=== PATIENT | female | born 1970 | race Caucasian/White ===

== ENCOUNTER 2017-03-30 09:11 | Observation (INO) | payer OTHER ==
[~2017-03-30] VITALS: Ht 162.6 cm; Wt 127.0 kg
[~2017-03-30 09:11] MED LIST: ALBUTEROL SUL0.083 % IN; ALEVE220 M1 PO; FLEXERIL PO; HM ASPIRIN EC325 MG PO; MEDDOSEPAK PO; METFORMIN500 MG PO; MUCINEX600 MG PO; NEBULIZE1; PLAVIX75 MG PO; ULTRAM50 M1 PO; VENTOLIN HF1 IN; ZESTRIL5 M1 PO; ZITHROMAX250 MG PO
--- NOTE | 2017-03-30 09:26 | NUR ---
PT IMMEDIATELY TO ROOM 13, HX AMI, SIMILAR SYMPTOMS.
[2017-03-30] MEDS ORDERED: ATENOLOL25 MG PO (09:30)
--- NOTE | 2017-03-30 09:35 | NUR ---
PATIENT REPORTS PAIN NOW 3/10 AFTER 1 SL NITRO. BP NOW 110/57. MD NOTIFIED OF PT STATUS.
[2017-03-30 09:52] LABS: HEMATOCRIT 45.5 % (37.0-47.0); HEMOGLOBIN 15.6 g/dl (12.0-16.0); IMMATURE GRANULOCYTES 0.7 % (0.0-1.0); MEAN CELL VOLUME 89.7 fL CALC (80.0-100.0); MEAN CORPUSCULAR HGB 30.8 pG CALC (26.0-32.0); MEAN CORPUSCULAR HGB CONC 34.3 g/L CALC (32.0-36.0); NEUT# 6.35 thou/uL (2.00-7.15); RED BLOOD COUNT 5.07 mill/uL (4.20-5.60); RED CELL DISTRI WIDTH 14.2 % (11.5-15.5)
[2017-03-30 10:05] LABS: ALBUMIN 4.6 g/dL (3.2-5.0); ALKALINE PHOSPHATASE 76 u/l (38-126); AMYLASE 34 u/l (30-110); ANION GAP 17 (6-22 (CALC)); BILIRUBIN, TOTAL 0.6 mg/dL (0.0-1.4); BUN 11 mg/dL (7-17); BUN/CREATININE RATIO 21 (12-20 (CALC)); CALCIUM 9.5 mg/dL (8.4-10.2); CARBON DIOXIDE 22 mmol/l (22-30); CHLORIDE 102 mmol/l (95-108); CREATININE 0.6 mg/dL (0.5-1.0); GFR > 60 ML/MIN (>=60 (CALC)); GFR FOR AFR.AMER. > 60 ML/MIN (>=60 (CALC)); GLUCOSE 180 mg/dL (65-105); LIPASE 73 u/l (23-300); POTASSIUM 4.4 mmol/l (3.5-5.1); SGOT/AST 28 u/l (14-36); SGPT/ALT 34 u/l (9-52); SODIUM 136 mmol/l (137-146)
--- NOTE | 2017-03-30 10:12 | NUR ---
PATIENT REPORTS PAIN NOW 2/10, RESTING COMFORTABLY IN STRETCHER IN NAD, FRIEND AT BEDSIDE.
[2017-03-30 10:17] LABS: MYOGLOBIN 23 ng/mL (0 - 62)
--- NOTE | 2017-03-30 10:50 | NUR ---
PT REPORTING PAIN NOW 09/14, AWARE OF PENDING ADMISSION. CALL SCHAFER WITHIN REACH. WILL CONTINUE TO MONITOR.
--- NOTE | 2017-03-30 10:52 | NUR ---
CALL PLACED TO MILTON BUSTILLOS WILL CALL MARK.
--- NOTE | 2017-03-30 11:03 | NUR ---
REPORT GIVEN TO CONCHITA ROSE.
--- NOTE | 2017-03-30 11:09 | NUR ---
Admission Note Report Given to: CONCHITA ROSE Transported by: Wheelchair X Stretcher Transported with: X Nurse Transporter X Patent IV O2 X Stoker Erector And Servicer PATIENT TRANSPORTED TO ROOM 267 IN STABLE CONDITION WITH A PATENT IV.
--- NOTE | 2017-03-30 11:10 | NUR ---
PT ARRIVED TO FLOOR AT THIS TIME VIA ADAN ACCOMPANIED BY CLARENCE RN; PT AMB TO SCALE AND BED WITH STEADY GAIT; NO S/S OF DISTRESS NOTED; PT ORIENTED TO ROOM AND CALL LIGHT SYSTEM; VSS; ASSESSMENT COMPLETED AT THIS TIME; TELE IN PLACE PER ED MONITORING; #20 TO LH FLUSHED W/O RESISTANCE; PT DENIES ANY CP AT THIS TIME; PT INSTRUCTED TO CALL FOR ANY CHANGES IN STATUS; CALL LIGHT WITHIN REACH; WILL CONTINUE TO MONITOR
[2017-03-30 11:29] VITALS: BP 118/60
--- NOTE | 2017-03-30 15:14 | NUR ---
PT RESTING IN BED; NO S/S OF DISTRESS NOTED; PT DENIES ANY CP; TELE IN PLACE; PT ECNOURAGED TO CALL FOR ANY ASSISTANCE NEEDED; CALL LIGHT WITHIN REACH; WILL CONTINUE TO MONITOR
[2017-03-30 15:30] VITALS: BP 110/62
--- NOTE | 2017-03-30 19:29 | NUR ---
pt awake in bed; no distress noted; assessment completed; denies pain at current; reports pain worse with coughing and moving; no n/v noted; resp even and unlabored; strong pulses; tele [id number] intact; abd soft with bs present; admits to voiding without difficulty; no urine to inspect at this time; #20 flushed and patent to ; plan of care/ prn meds/labs explained; pt denies needs at current; call light within reach; will continue to monitor
[2017-03-30 19:35] VITALS: BP 124/70
--- NOTE | 2017-03-30 21:15 | NUR ---
awake; rags laborer at bedside; pt offers no complaints; will continue to monitor
--- NOTE | 2017-03-30 23:51 | NUR ---
asleep; no distress noted; resp even and unlabored; iv intact; call light within reach; will continue to monitor
[2017-03-31 00:10] VITALS: BP 127/60
--- NOTE | 2017-03-31 00:19 | NUR ---
awake; complaints of pain at lac iv site; no redness or edema noted; iv flushed and patent; pt states increasing pain; catheter removed with tip intact; #20 started in rh x2 attempts; ivf resumed; call light within reach; will continue to monitor
[2017-03-31 00:55] LABS: URINE BILIRUBIN - DIPSTICK NEGATIVE (NEGATIVE); URINE BLOOD DIPSTICK NEGATIVE (NEGATIVE); URINE CLARITY CLEAR; URINE COLOR YELLOW; URINE GLUCOSE - DIPSTICK 100 mg/dL (NEGATIVE); URINE KETONE TRACE mg/dL (NEGATIVE); URINE LEUK ESTERASE NEGATIVE (NEGATIVE); URINE NITRITE - DIPSTICK NEGATIVE (Negative); URINE PROTEIN - DIPSTICK NEGATIVE (NEG-TRACE); URINE SPECIFIC GRAVITY 1.025; URINE UROBILINOGEN - DIPSTICK 0.2 E.U./dL (0.2)
--- NOTE | 2017-03-31 03:52 | NUR ---
asleep; no distress noted; resp even and unlabored; iv intact; call light within reach; will continue to monitor
--- NOTE | 2017-03-31 04:32 | NUR ---
awake; denies chest pain during the night; iv flushed and patent; will continue to monitor
[2017-03-31 04:45] VITALS: BP 137/78
--- NOTE | 2017-03-31 05:34 | NUR ---
resting with eyes closed; no distress noted; tele; call light within reach
[2017-03-31 05:42] LABS: CHOLESTEROL HDL RATIO 7.8 (<4.4 (CALC))
[2017-03-31 07:54] VITALS: BP 123/57
[2017-03-31] MEDS ORDERED: LEVOTHYROXIN25 MC1 PO (11:34)
[2017-03-31] MEDS ORDERED: LIPITOR20 MG PO (11:34)
[2017-03-31 12:43] VITALS: BP 127/61
--- NOTE | 2017-03-31 14:56 | NUR ---
Discharge instructions given. Patient verbalizes understanding of same. Discharged in good condition via Wheelchair to Home with *Other. All belongings sent with pt.
== END 2017-03-31 14:46 | disposition home or self-care (01) | DRG 313 ==
LOC: ENPENDDIS → ED 09:11 → ED-I 10:10 → ED 10:41 → MS2 10:42
PROVIDERS: Emergency Medicine; Nurse Practitioner Family; ADMIT Internal Medicine; ATTEND Internal Medicine
DX: R07.2 Precordial pain (principal); I25.2 Old myocardial infarction; E11.69 Type 2 diabetes mellitus with other specified complication; E11.65 Type 2 diabetes mellitus with hyperglycemia; Z68.42 Body mass index [BMI] 45.0-49.9, adult; I10 Essential (primary) hypertension; E78.5 Hyperlipidemia, unspecified; F17.210 Nicotine dependence, cigarettes, uncomplicated; E66.01 Morbid (severe) obesity due to excess calories; E03.9 Hypothyroidism, unspecified; Z91.14 Patient's other noncompliance with medication regimen; Z95.5 Presence of coronary angioplasty implant and graft; Z79.84 Long term (current) use of oral hypoglycemic drugs
CPT/HCPCS: G0378

== ENCOUNTER 2018-09-01 09:34 | Emergency (ER) | payer OTHER ==
[~2018-09-01] VITALS: Ht 162.6 cm; Wt 100.0 kg
[~2018-09-01 09:34] MED LIST changes: +ATENOLOL25 MG PO; +LEVOTHYROXIN25 MC1 PO; +LIPITOR20 MG PO
[2018-09-01 10:02] LABS: URINE BILIRUBIN - DIPSTICK NEGATIVE (NEGATIVE); URINE BLOOD DIPSTICK NEGATIVE (NEGATIVE); URINE COLOR YELLOW; URINE GLUCOSE - DIPSTICK >=1000 mg/dL (NEGATIVE); URINE KETONE TRACE mg/dL (NEGATIVE); URINE LEUK ESTERASE NEGATIVE (NEGATIVE); URINE NITRITE - DIPSTICK NEGATIVE (Negative); URINE PROTEIN - DIPSTICK TRACE mg/dL (NEG-TRACE); URINE SPECIFIC GRAVITY >=1.030; URINE UROBILINOGEN - DIPSTICK 0.2 E.U./dL (0.2)
[2018-09-01 10:09] LABS: HEMATOCRIT 48.1 % (37.0-47.0); HEMOGLOBIN 16.3 g/dl (12.0-16.0); IMMATURE GRANULOCYTES 0.7 % (0.0-5.0); MEAN CELL VOLUME 90.2 fL CALC (80.0-100.0); MEAN CORPUSCULAR HGB 30.6 pG CALC (26.0-32.0); MEAN CORPUSCULAR HGB CONC 33.9 g/L CALC (32.0-36.0); NEUT# 5.42 thou/uL (2.00-7.15); RED BLOOD COUNT 5.33 mill/uL (4.20-5.60); RED CELL DISTRI WIDTH 13.6 % (11.5-15.5)
[2018-09-01 10:09] LABS: URINE SQUAMOUS EPITHELIAL CELL MODERATE EPI/hpf (0-FEW)
[2018-09-01 10:10] LABS: URINE BACTERIA MANY hpf
[2018-09-01 10:32] LABS: ALBUMIN 4.3 g/dL (3.2-5.0); ALKALINE PHOSPHATASE 82 u/l (38-126); ANION GAP 15 (6-22 (CALC)); BILIRUBIN, TOTAL 0.4 mg/dL (0.0-1.4); BUN 13 mg/dL (7-17); BUN/CREATININE RATIO 30 (12-20 (CALC)); CARBON DIOXIDE 23 mmol/l (22-30); CHLORIDE 104 mmol/l (95-108); CREATININE 0.4 mg/dL (0.5-1.0); GFR > 60 ML/MIN (>=60 (CALC)); GFR FOR AFR.AMER. > 60 ML/MIN (>=60 (CALC)); LIPASE 92 u/l (23-300); POTASSIUM 4.4 mmol/l (3.5-5.1); SGOT/AST 14 u/l (14-36); SODIUM 137 mmol/l (137-146); TOTAL PROTEIN 7.6 g/dL (6.3-8.2)
[2018-09-01] MEDS ORDERED: OMNICEF300 M1 PO (10:59)
[2018-09-01 11:06] VITALS: BP 161/77
== END 2018-09-01 11:09 | disposition home or self-care (01) ==
LOC: ED 09:34
PROVIDERS: Family Medicine
DX: N39.0 Urinary tract infection, site not specified (principal); S39.011A Strain of muscle, fascia and tendon of abdomen, initial encounter; R10.9 Unspecified abdominal pain; I10 Essential (primary) hypertension; E11.9 Type 2 diabetes mellitus without complications; E78.5 Hyperlipidemia, unspecified; F17.200 Nicotine dependence, unspecified, uncomplicated; X58.XXXA Exposure to other specified factors, initial encounter; Z95.5 Presence of coronary angioplasty implant and graft; R30.0 Dysuria; R35.0 Frequency of micturition

== ENCOUNTER 2018-10-21 11:15 | Emergency (ER) | payer OTHER ==
[~2018-10-21] VITALS: Ht 162.6 cm; Wt 125.0 kg
[~2018-10-21 11:15] MED LIST changes: +OMNICEF300 M1 PO
[2018-10-21] MEDS ORDERED: ZPAK PO (12:16)
[2018-10-21] MEDS ORDERED: ALBUTEROL SUL0.083 % IN (12:16)
[2018-10-21] MEDS ORDERED: PROAIR HFA108 MCG/AC PO (12:16)
[2018-10-21] MEDS ORDERED: PREDNISONE50 MG PO (12:21)
[2018-10-21 12:22] VITALS: BP 140/80
== END 2018-10-21 12:24 | disposition home or self-care (01) ==
LOC: ED 11:15
DX: J20.9 Acute bronchitis, unspecified (principal); I10 Essential (primary) hypertension; E11.9 Type 2 diabetes mellitus without complications; E78.5 Hyperlipidemia, unspecified; Z95.5 Presence of coronary angioplasty implant and graft; R06.02 Shortness of breath; R05 Cough; R06.2 Wheezing

== ENCOUNTER 2019-06-16 12:57 | Emergency (ER) | payer OTHER ==
[~2019-06-16] VITALS: Ht 162.6 cm; Wt 125.0 kg
[~2019-06-16 12:57] MED LIST changes: +PREDNISONE50 MG PO; +PROAIR HFA108 MCG/AC PO; +ZPAK PO
[2019-06-16] MEDS ORDERED: LEVOTHYROXIN75 MCG PO (13:43)
[2019-06-16] MEDS ORDERED: SERTRALINE25 MG PO (13:44)
[2019-06-16] MEDS ORDERED: ISOSORB MONO30 MG PO (13:44)
[2019-06-16 13:51] LABS: HEMATOCRIT 45.6 % (37.0-47.0); HEMOGLOBIN 15.3 g/dl (12.0-16.0); IMMATURE GRANULOCYTES 0.6 % (0.0-5.0); MEAN CELL VOLUME 89.6 fL CALC (80.0-100.0); MEAN CORPUSCULAR HGB 30.1 pG CALC (26.0-32.0); MEAN CORPUSCULAR HGB CONC 33.6 g/L CALC (32.0-36.0); NEUT# 5.47 thou/uL (2.00-7.15); RED BLOOD COUNT 5.09 mill/uL (4.20-5.60); RED CELL DISTRI WIDTH 13.9 % (11.5-15.5)
[2019-06-16 14:06] LABS: ALBUMIN 4.2 g/dL (3.2-5.0); ALKALINE PHOSPHATASE 91 u/l (38-126); ANION GAP 14 (6-22 (CALC)); BILIRUBIN, TOTAL 0.3 mg/dL (0.0-1.4); BUN 12 mg/dL (7-17); BUN/CREATININE RATIO 25 (12-20 (CALC)); CARBON DIOXIDE 25 mmol/l (22-30); CHLORIDE 101 mmol/l (95-108); CREATININE 0.5 mg/dL (0.5-1.0); GFR > 60 ML/MIN (>=60 (CALC)); GFR FOR AFR.AMER. > 60 ML/MIN (>=60 (CALC)); POTASSIUM 4.6 mmol/l (3.5-5.1); SGOT/AST 19 u/l (14-36); SODIUM 135 mmol/l (137-146); TOTAL PROTEIN 7.3 g/dL (6.3-8.2)
[2019-06-16 14:18] LABS: MYOGLOBIN 25 ng/mL (0 - 62)
[2019-06-16 14:30] LABS: LIPASE 126 u/l (23-300)
[2019-06-16 14:57] VITALS: BP 149/65
== END 2019-06-16 14:58 | disposition left against medical advice (07) ==
LOC: ED 12:57 → ED-I 14:30 → ED 14:58
DX: R07.9 Chest pain, unspecified (principal); J45.901 Unspecified asthma with (acute) exacerbation; I25.10 Atherosclerotic heart disease of native coronary artery without angina pectoris; E11.9 Type 2 diabetes mellitus without complications; I10 Essential (primary) hypertension; I25.2 Old myocardial infarction; F17.200 Nicotine dependence, unspecified, uncomplicated; Z91.19 Patient's noncompliance with other medical treatment and regimen; Z79.4 Long term (current) use of insulin; Z95.5 Presence of coronary angioplasty implant and graft; R11.0 Nausea; R06.02 Shortness of breath

== ENCOUNTER 2019-07-30 17:31 | Observation (INO) | payer OTHER ==
[~2019-07-30] VITALS: Ht 162.6 cm; Wt 118.5 kg
[~2019-07-30 17:31] MED LIST changes: +ISOSORB MONO30 MG PO; +LEVOTHYROXIN75 MCG PO; +SERTRALINE25 MG PO
--- NOTE | 2019-07-30 17:34 | NUR ---
PT AMB TO ROOM FOR TRIAGE;
[2019-07-30 17:58] LABS: HEMATOCRIT 46.2 % (37.0-47.0); HEMOGLOBIN 15.1 g/dl (12.0-16.0); IMMATURE GRANULOCYTES 0.8 % (0.0-5.0); MEAN CORPUSCULAR HGB 29.1 pG CALC (26.0-32.0); MEAN CORPUSCULAR HGB CONC 32.7 g/L CALC (32.0-36.0); NEUT# 3.48 thou/uL (2.00-7.15); RED BLOOD COUNT 5.19 mill/uL (4.20-5.60); RED CELL DISTRI WIDTH 13.6 % (11.5-15.5)
[2019-07-30 18:12] LABS: ANION GAP 15 (6-22 (CALC)); BUN 11 mg/dL (7-17); BUN/CREATININE RATIO 24 (12-20 (CALC)); CARBON DIOXIDE 24 mmol/l (22-30); CHLORIDE 105 mmol/l (95-108); CREATININE 0.5 mg/dL (0.5-1.0); GFR > 60 ML/MIN (>=60 (CALC)); GFR FOR AFR.AMER. > 60 ML/MIN (>=60 (CALC)); POTASSIUM 4.1 mmol/l (3.5-5.1); SODIUM 140 mmol/l (137-146)
--- NOTE | 2019-07-30 18:26 | NUR ---
PT SITTING UP ON STRETCHER; NO S/S OF DISTRESS NOTED; O2 NC IN PLACE; MONITORING DEVICES IN PLACE; VSS; PO FLUIDS GIVEN; PT STATES BREATHING IS A LITTLE BETTER; CALL LIGHT WITHIN REACH; WILL CONTINUE TO MONITOR
--- NOTE | 2019-07-30 18:49 | NUR ---
REPORT GIVEN TO CONCHITA TERAN
--- NOTE | 2019-07-30 18:49 | NUR ---
PT RESTING. VSS. NAD. LUNGS CLEAR/DIM
--- NOTE | 2019-07-30 19:31 | NUR ---
REPORT TO STAR/NURSE.
--- NOTE | 2019-07-30 19:41 | NUR ---
TO FLOOR WITH O2 VIA NC/IV ZITHROMAX INFUSING. UPON ARRIVAL PT AMBULATED TO ROOM, WEIGHED AND SETTLED IN ROOM.
--- NOTE | 2019-07-30 20:31 | NUR ---
RECEIVED REPORT FROM NURSE TERAN, PATIENT TRANSPORTED VIA BED HOOKED TO O2 @ 2LPM VIA NC, NOTED TO HAVE EXERTIONAL DYSPNEA, CALL LIGHT AT REACH.
[2019-07-30 20:42] VITALS: BP 173/82
[2019-07-30 22:59] VITALS: BP 161/80
[2019-07-31] VITALS (7 sets, daily range): BP systolic 127–188; BP diastolic 50–90
--- NOTE | 2019-07-31 | NUR ---
PATIENT REMAINS ON O2@ 2LPM VIA NC, SHALLOW, EVEN RESPIRATION CALL LIGHT AT REACH.
--- NOTE | 2019-07-31 04:37 | NUR ---
PATUIENT RESTING IN BED WITH EYES CLOSED EVEN UNLABORED BREATHING CALL LIGHT AT REACH.
--- NOTE | 2019-07-31 08:00 | NUR ---
PT IS AWAKE, ALERT,ORIENTED X 3. LUNGS WITH SLIGHT WHEEZE HEARD THROUGHOUT, BECOMES SOB WITH EXERTION. ELEVATED BLOOD SUGAR OF 310, TO CHECK WITH PRACTITIONER FOR SLIDING SCALE. NAD.
[2019-07-31 11:49] LABS: HEMATOCRIT 45.2 % (37.0-47.0); HEMOGLOBIN 15.1 g/dl (12.0-16.0); IMMATURE GRANULOCYTES 1.6 % (0.0-5.0); MEAN CELL VOLUME 89.3 fL CALC (80.0-100.0); MEAN CORPUSCULAR HGB 29.8 pG CALC (26.0-32.0); MEAN CORPUSCULAR HGB CONC 33.4 g/L CALC (32.0-36.0); NEUT# 8.67 thou/uL (2.00-7.15); RED BLOOD COUNT 5.06 mill/uL (4.20-5.60); RED CELL DISTRI WIDTH 13.7 % (11.5-15.5)
--- NOTE | 2019-07-31 12:00 | NUR ---
PT IN NO DISTRESS SHE RESTS IN THE BED, VISITING INTERMITTENTLY.
[2019-07-31 12:01] LABS: BUN 15 mg/dL (7-17); BUN/CREATININE RATIO 30 (12-20 (CALC)); CARBON DIOXIDE 25 mmol/l (22-30); CHLORIDE 100 mmol/l (95-108); CREATININE 0.5 mg/dL (0.5-1.0); GFR > 60 ML/MIN (>=60 (CALC)); GFR FOR AFR.AMER. > 60 ML/MIN (>=60 (CALC)); MAGNESIUM 1.8 mg/dL (1.6-2.3); SODIUM 136 mmol/l (137-146)
[2019-07-31 12:02] LABS: ANION GAP 16 (6-22 (CALC)); POTASSIUM 5.1 mmol/l (3.5-5.1)
[2019-07-31 13:32] LABS: CHOLESTEROL HDL RATIO 7.7 (<4.4 (CALC))
--- NOTE | 2019-07-31 18:00 | NUR ---
PT SEEN BY DR BLACKBURN, ORDERS RECEIVED FOR ACCUCHECKS AND RESPIRATORY TREATMENTS. PT REMAINS BEFORE, NO DISTRESS, NO COMPLAINTS OF CHEST PAIN.
--- NOTE | 2019-07-31 19:50 | NUR ---
ASSESSMENT COMPLETED. PT. C/O EPIGASTRIC PAIN AND NOTIFIED EDUARDO HAMILTON, WHO IS ON THE FLOOR AT THIS TIME, NEW ORDERS RECEIVED AND TO BE CARRIED OUT. UPDATED ON POC. O2 INFUSING PER NC PER ORDER. PT. DECLINES SOCKS AND NICOLE HOSE TO BE APPLIED. DENIES FURTHER NEEDS. ENCOURAGED TO CALL FOR ANY NEEDS. CALL LIGHT IS IN REACH.
--- NOTE | 2019-07-31 21:43 | NUR ---
SCHED NOVOLOG GIVEN AND SNACK PROVIDED. DENIES NEEDS. ENCOURAGED TO CALL FOR ANY NEEDS. CALL LIGHT IS IN REACH. WILL CONTINUE TO MONITOR.
[2019-07-31 21:56] LABS: URINE BILIRUBIN - DIPSTICK NEGATIVE (NEGATIVE); URINE BLOOD DIPSTICK NEGATIVE (NEGATIVE); URINE COLOR YELLOW; URINE GLUCOSE - DIPSTICK >=1000 mg/dL (NEGATIVE); URINE KETONE NEGATIVE (NEGATIVE); URINE LEUK ESTERASE NEGATIVE (NEGATIVE); URINE NITRITE - DIPSTICK NEGATIVE (Negative); URINE PROTEIN - DIPSTICK NEGATIVE (NEG-TRACE); URINE SPECIFIC GRAVITY 1.025; URINE UROBILINOGEN - DIPSTICK 0.2 E.U./dL (0.2)
--- NOTE | 2019-07-31 23:48 | NUR ---
VSS. DENIES NEEDS/PAIN. ENCOURAGED TO CALL FOR ANY NEEDS. CALL LIGHT IS IN REACH.
[2019-08-01] VITALS (7 sets, daily range): BP systolic 123–173; BP diastolic 55–88
--- NOTE | 2019-08-01 02:00 | NUR ---
PT. RESTING IN BED ON LEFT SIDE WITH EYES CLOSED; RESP. EVEN AND UNLABORED. CALL LIGHT IS IN REACH.
--- NOTE | 2019-08-01 04:00 | NUR ---
RESTING IN BED WITH NO DISTRESS NOTED; RESP. EVEN AND UNLABORED. CALL LIGHT IS IN REACH.
--- NOTE | 2019-08-01 05:10 | NUR ---
SCHED SYNTHROID GIVEN. DENIES FURTHER NEEDS. FRESH WATER GIVEN. CALL LIGHT IS IN REACH.
[2019-08-01 05:26] LABS: HEMATOCRIT 43.8 % (37.0-47.0); HEMOGLOBIN 14.4 g/dl (12.0-16.0); MEAN CELL VOLUME 89.4 fL CALC (80.0-100.0); MEAN CORPUSCULAR HGB 29.4 pG CALC (26.0-32.0); MEAN CORPUSCULAR HGB CONC 32.9 g/L CALC (32.0-36.0); NEUT# 8.21 thou/uL (2.00-7.15); RED BLOOD COUNT 4.9 mill/uL (4.20-5.60); RED CELL DISTRI WIDTH 13.8 % (11.5-15.5)
[2019-08-01 05:45] LABS: ANION GAP 17 (6-22 (CALC)); BUN 17 mg/dL (7-17); BUN/CREATININE RATIO 43 (12-20 (CALC)); CARBON DIOXIDE 23 mmol/l (22-30); CHLORIDE 100 mmol/l (95-108); CREATININE 0.4 mg/dL (0.5-1.0); GFR > 60 ML/MIN (>=60 (CALC)); GFR FOR AFR.AMER. > 60 ML/MIN (>=60 (CALC)); SODIUM 136 mmol/l (137-146)
--- NOTE | 2019-08-01 08:00 | NUR ---
PT SEEN AWAKE, ALERT, ORIENTED X 3. NO COMPLAINT OF CHEST PAIN OR SHORTNESS OF BREATH. BM TODAY. PT AMBULATORY IN ROOM WITHOUT DIFFICULTY. LUNGS CLEAR BUT DIMINISHED PER PT SIZE.
--- NOTE | 2019-08-01 12:00 | NUR ---
PT SEEN BY DR BLACKBURN THIS MORNING, WHO ORDERED 6 MINUTE WALK TEST TO EVALUATE NEED FOR OXYGEN AT HOME. NO COMPLAINTS, NO DISTRESS. 2 LPM NC.
[2019-08-01] MEDS ORDERED: IPRATROPIU0.5 MG/3 M IN (14:02)
[2019-08-01] MEDS ORDERED: MEDDOSEPAK PO (14:06)
[2019-08-01] MEDS ORDERED: ZITHROMAX500 MG PO (14:06)
[2019-08-01] MEDS ORDERED: SPIRIVA RE1.25 MCG/A IN (14:06)
--- NOTE | 2019-08-01 15:35 | NUR ---
PT TAKEN ON 6 MINUTE WALK, SEEN TO HAVE LOW ENOUGH SATS TO REQUIRE HOME OXYGEN. PT'S INSURANCE DOES NOT PROVIDE TIMELY ENOUGH APPROVAL TO DISCHARGE HER HOME TODAY. PT AWARE OF NEED TO STAY, AGREEABLE. NO ACUTE DISTRESS NOTED, MCGREGOR.
--- NOTE | 2019-08-01 19:30 | NUR ---
ASSESSMENT COMPLETED. NO DISTRESS NOTED. PT. SITTING UP ON RA AT THIS TIME. SCHED ABT HUNG AND IV SITE PATENT. FRESH WATER PROVIDED. PT. REPORTS BM EARLIER IN THE DAY. ENCOURAGED TO CALL FOR ANY NEEDS. CALL LIGHT IS IN REACH.
--- NOTE | 2019-08-01 20:50 | NUR ---
NOTIFIED DR. BLACKBURN OF ELEVATED B/P 170/88 WITH HR 68, ALSO NOTIFIED HIM OF B/P MED GIVEN IN AM. NEW ORDERS RECEIVED AND TO BE CARRIED OUT. UPDATED PT. WITH POC.
--- NOTE | 2019-08-02 | NUR ---
RESTING IN BED WITH EYES CLOSED;NO DISTRESS NOTED; RESP. EVEN AND UNLABORED.
--- NOTE | 2019-08-02 03:10 | NUR ---
RESTING IN BED WITH EYES CLOSED; RESP. EVEN AND UNLABORED. CALL LIGHT IS IN REACH.
[2019-08-02 04:17] VITALS: BP 159/84
--- NOTE | 2019-08-02 05:10 | NUR ---
SCHEDULED SYNTHROID GIVEN AT THIS TIME. DENIES NEEDS/PAIN. FRESH WATER GIVEN. CALL LIGHT IS IN REACH.
--- NOTE | 2019-08-02 07:10 | NUR ---
PT RESTING IN BED, NO SIGNS OF DISTRESS NOTED, RESP EVEN AND UNLABORED. PT ALERT AND ORIENTED X3, PT ON RA 94% AT THIS TIME, PT DENIES SOB. DISCUSSED POC. ASSESSMENT COMPLETED, CALL LIGHT IN REACH,CONTINUE TO MONITOR.
[2019-08-02 07:17] VITALS: BP 130/71
[2019-08-02 12:00] VITALS: BP 165/82
--- NOTE | 2019-08-02 12:00 | NUR ---
PT RESTING IN BED, NO SIGNS OF DISTRESS NOTED, RESP EVEN AND UNLABORED. CALL LIGHT IN REACH,CONTINUE TO MONITOR.
[2019-08-02 14:45] VITALS: BP 163/82
--- NOTE | 2019-08-02 14:45 | NUR ---
PT RECHECKED STILL ELEVATED, VISITOR AT BEDSIDE CAUSING SOME FRUSTRATION INFORMED VISITOR THAT PT SAFETY OUR MAIN CONCERN AND IF VISITOR IS CAUSING PT BP TO BE ELEVATED HE MAY NEED TO LEAVE, PT STATES SHE IS OK AT THIS TIME. CALL LIGHT IN REACH, DOOR LEFT OPEN FOR SAFETY. CALL LIGHT IN REACH,CONTINUE TO MONITOR.
--- NOTE | 2019-08-02 14:54 | NUR ---
VISITOR LEFT AT THIS TIME.
[2019-08-02 16:00] VITALS: BP 176/83
--- NOTE | 2019-08-02 16:00 | NUR ---
PT RESTING IN BED WATCHING TV, NO SIGNS OF DISTRESS NOTED, RESP EVEN AND UNLABORED. CALL LIGHT IN REACH,CONTINUE TO MONITOR.
--- NOTE | 2019-08-02 17:40 | NUR ---
NOTIFIED SILVER SERVICE WAITER OF BP, ORDERS PLACED FOR IV APRESOLINE
[2019-08-02 18:58] VITALS: BP 158/80
--- NOTE | 2019-08-02 19:00 | NUR ---
RECEIVED REPORT FROM AM NURSE, PATIENT CURRENTLY EATING DINNER DENIES PAIN OR DISCOMFORTS WITH EVEN UNLABORED BREATHING.
--- NOTE | 2019-08-03 | NUR ---
PATIENT AWAKE AT THIS TIME, WITH SALINE LOCK ON RFA G22, PATENT FLUSHES WELL, EVEN UNLABORED BREATHING AT THIS TIME,LBM 08/01, WILL CONTINUE TO MONITOR
[2019-08-03 00:30] VITALS: BP 160/83
--- NOTE | 2019-08-03 04:00 | NUR ---
PATIENT APPERAS TO BE SLEEPING WITH EYES CLOSED, NO DISCOMFORTS NOTED CALL LIGHTA T REACH.
[2019-08-03 05:07] VITALS: BP 145/78
[2019-08-03 08:45] VITALS: BP 173/77
--- NOTE | 2019-08-03 08:45 | NUR ---
ASSESSMENT IS COMPLETED: IV SITE IS FREE FROM REDNESS OR EDEMA. HR IS REG,PULSES ARE STRONG X4, ABD IS SOFT WITH ACTIVE BS. BREATH SOUNDS ARE DIMINISHED BILATERALLY, CONTINUE TO OBSERVE AND MONITOR. TELE MONITOR IN PLACE
[2019-08-03 11:07] VITALS: BP 178/67
--- NOTE | 2019-08-03 12:31 | NUR ---
PT IS SITTING IN BED WAITING FOR THE DR. OXYGEN HAS BEEN DELIVERED,
[2019-08-03 12:43] VITALS: BP 157/73
--- NOTE | 2019-08-03 15:08 | NUR ---
DR BRUMFIELD IN TO VISIT WITH PT.,
--- NOTE | 2019-08-03 16:15 | NUR ---
IV SITE DISCONTINEUD CATHETER INTACT. NO REDNESS OR EDEMA.
--- NOTE | 2019-08-03 17:00 | NUR ---
DISCHARGE INSTRUCTIONS GIVEN AND VERBALIZED UNDERSTANDING OXYGEN TANK SENT WITH PT. Discharge instructions given. Patient verbalizes understanding of same. Discharged in stable condition via Wheelchair to Home with family. All belongings sent with pt.
== END 2019-08-03 17:00 | disposition home or self-care (01) ==
LOC: ED 17:31 → ED-I 18:35 → ED 18:48 → MS2 18:49
PROVIDERS: Family Medicine; Nurse Practitioner Family; ADMIT Internal Medicine; ATTEND Internal Medicine
DX: J44.1 Chronic obstructive pulmonary disease with (acute) exacerbation (principal); R09.02 Hypoxemia; R07.9 Chest pain, unspecified; I16.0 Hypertensive urgency; I10 Essential (primary) hypertension; E11.65 Type 2 diabetes mellitus with hyperglycemia; E11.69 Type 2 diabetes mellitus with other specified complication; E78.5 Hyperlipidemia, unspecified; E03.9 Hypothyroidism, unspecified; E66.01 Morbid (severe) obesity due to excess calories; I25.10 Atherosclerotic heart disease of native coronary artery without angina pectoris; K21.9 Gastro-esophageal reflux disease without esophagitis; F17.210 Nicotine dependence, cigarettes, uncomplicated; I25.2 Old myocardial infarction; Z68.41 Body mass index [BMI] 40.0-44.9, adult; Z79.84 Long term (current) use of oral hypoglycemic drugs; Z79.82 Long term (current) use of aspirin; Z79.02 Long term (current) use of antithrombotics/antiplatelets; Z95.5 Presence of coronary angioplasty implant and graft; Z88.0 Allergy status to penicillin
CPT/HCPCS: G0378

== ENCOUNTER 2019-08-21 11:24 | Observation (INO) | payer OTHER ==
[~2019-08-21] VITALS: Ht 162.6 cm; Wt 121.0 kg
[~2019-08-21 11:24] MED LIST changes: +IPRATROPIU0.5 MG/3 M IN; +SPIRIVA RE1.25 MCG/A IN; +ZITHROMAX500 MG PO
--- NOTE | 2019-08-21 11:25 | NUR ---
PT TO ROOM 9 VIA WC. ABLE TO SPEAK COMPLETE SENTENCES WITHOUT DIFFICULTY
--- NOTE | 2019-08-21 11:57 | NUR ---
PT ALERT/ORIENTED X3, PT STATES SHE HAS OXYEGEN AT HOME PRN.
--- NOTE | 2019-08-21 12:13 | NUR ---
PT SITTING UP IN BED, WATCHING TV, NO DISTRESS NOTED AT THIS TIME
--- NOTE | 2019-08-21 12:16 | NUR ---
PT DELMIS, NOTIFIED.
[2019-08-21 12:40] LABS: ANION GAP 18 (6-22 (CALC)); BUN 9 mg/dL (7-17); BUN/CREATININE RATIO 23 (12-20 (CALC)); CARBON DIOXIDE 20 mmol/l (22-30); CHLORIDE 95 mmol/l (95-108); CREATININE 0.4 mg/dL (0.5-1.0); GFR > 60 ML/MIN (>=60 (CALC)); GFR FOR AFR.AMER. > 60 ML/MIN (>=60 (CALC)); POTASSIUM 4.3 mmol/l (3.5-5.1); SODIUM 129 mmol/l (137-146)
[2019-08-21 12:46] LABS: HEMATOCRIT 41.1 % (37.0-47.0); HEMOGLOBIN 13.8 g/dl (12.0-16.0); IMMATURE GRANULOCYTES 0.5 % (0.0-5.0); MEAN CELL VOLUME 88.4 fL CALC (80.0-100.0); MEAN CORPUSCULAR HGB 29.7 pG CALC (26.0-32.0); MEAN CORPUSCULAR HGB CONC 33.6 g/L CALC (32.0-36.0); NEUT# 12.6 thou/uL (2.00-7.15); RED BLOOD COUNT 4.65 mill/uL (4.20-5.60); RED CELL DISTRI WIDTH 14.6 % (11.5-15.5)
[2019-08-21 13:38] LABS: ALBUMIN 3.4 g/dL (3.2-5.0); TOTAL PROTEIN 6.3 g/dL (6.3-8.2)
[2019-08-21 13:39] LABS: BILIRUBIN, TOTAL 0.9 mg/dL (0.0-1.4)
[2019-08-21 14:04] LABS: URINE BLOOD DIPSTICK NEGATIVE (NEGATIVE); URINE GLUCOSE - DIPSTICK >=1000 mg/dL (NEGATIVE); URINE KETONE 15 mg/dL (NEGATIVE); URINE LEUK ESTERASE NEGATIVE (NEGATIVE); URINE NITRITE - DIPSTICK NEGATIVE (Negative); URINE PH 5.5 (4.5-8.0); URINE PROTEIN - DIPSTICK 30 mg/dL (NEG-TRACE); URINE SPECIFIC GRAVITY 1.015
[2019-08-21 14:08] LABS: URINE BILIRUBIN - DIPSTICK SMALL (NEGATIVE)
[2019-08-21 14:09] LABS: URINE COLOR DK. YELLOW; URINE EPITHELIAL CELLS FEW EPI/hpf (0-FEW); URINE MUCUS MODERATE hpf (NONE-FEW)
--- NOTE | 2019-08-21 14:12 | NUR ---
SBAR PRINTED TO FLOOR
--- NOTE | 2019-08-21 14:26 | NUR ---
PT UP IN W/C TO BATHROOM, VERY STRONG ODOR SMELL. PT DENIES ANY CHEST PAIN AT THIS TIME, NO TEMP AT THIS TIME 98.6
--- NOTE | 2019-08-21 14:48 | NUR ---
PT UNABLE TO TAKE REPORT ON PT AT THIS TIME
--- NOTE | 2019-08-21 15:25 | NUR ---
PT TO MEDSUR VIA STRETCHER ACCOMPANIED BY STAFF
[2019-08-21 15:38] VITALS: BP 137/85
--- NOTE | 2019-08-21 16:00 | NUR ---
ASSESSMENT DONE. PT IS A&O X3. PT STATED PAIN IN HEAD 10/. TELE IN PLACE. PT STATED SHE HAS A DRY COUGH. PT STATED SHE HAS A BOIL IN AILYN AREA BUT IT IS INTACT. LUNGS SOUND DIMINISHED. SAFETY PRECAUTIONS REINFORCED AND CALL LIGHT IN REACH. NOTIFIED EDUARDO HERNANDEZ RE: PT ACCU, TEMP 100.0 AND PT HAS A BOIL AILYN AREA.
[2019-08-21 18:38] VITALS: BP 132/61
--- NOTE | 2019-08-21 19:18 | NUR ---
REPORT FROM ADENIKE ARANGO. PT ALERT AND ORIENTED. NO APPARENT DISTRESS NOTED. DENIES ANY PAIN OR NAUSEA. PT APPEARS SWEATY. ACCUCHECK OBTAIN 374. AFEBRILE AT THIS TIME. SHOWERED OFFERED AT THIS TIME, PT REFUSED. IV SITE APPEARS HEALTHY. DESKTOP TECHNICIAN IN PLACE. O2 AT BEDSIDE PRN. DISCUSSED POC. PT VERBALIZED UNDERSTANDING. CALL LIGHT WITHIN REACH. WILL CONTINUE TO MONITOR.
--- NOTE | 2019-08-21 22:44 | NUR ---
PT CONTINUES TO SWEAT. ALERT AND ORIENTED. MEDICATED FOR NAUSEA. AFEBRILE. PT AGREES TO SHOWER AT THIS TIME. WILL CONTINUE TO MONITOR.
[2019-08-21 23:56] VITALS: BP 135/80
--- NOTE | 2019-08-22 00:17 | NUR ---
PT MEDICATED FOR HEADACHE WITH PO TYLENOL. NO APPARENT DISTRESS NOTED. PT DENIES ANY OTHER WANTS OR NEEDS. CALL LIGHT WITHIN REACH. WILL CONTINUE TO MONITOR.
[2019-08-22 03:52] VITALS: BP 144/84
--- NOTE | 2019-08-22 04:20 | NUR ---
PT AMBULATED TO BATHROOM WITH STEADY GAIT. COMPLETE LINEN CHANGE DUE TO SWEATING. PT REMAINS AFEBRILE. DENIES ANY OTHER SYMPTOMS. CALL LIGHT WITHIN REACH. WILL CONTINUE TO MONITOR.
[2019-08-22 07:14] VITALS: BP 132/61
--- NOTE | 2019-08-22 08:00 | NUR ---
ASSESSMENT DONE. PT IS A&O X3. PT DENIES PAIN AT THIS TIME. PT STATED READY FOR FOOD. PT STATED SHE HAD A BM. TELE IN PLACE. IVF INFUSING WELL. PT DENIES ANY OTHER NEEDS AT THIS TIME. CALL LIGHT IN REACH.
[2019-08-22 09:49] LABS: HEMOGLOBIN 13.4 g/dl (12.0-16.0); IMMATURE GRANULOCYTES 0.7 % (0.0-5.0); MEAN CELL VOLUME 88.3 fL CALC (80.0-100.0); MEAN CORPUSCULAR HGB 29.6 pG CALC (26.0-32.0); MEAN CORPUSCULAR HGB CONC 33.5 g/L CALC (32.0-36.0); NEUT# 12.62 thou/uL (2.00-7.15); RED BLOOD COUNT 4.53 mill/uL (4.20-5.60); RED CELL DISTRI WIDTH 14.2 % (11.5-15.5)
[2019-08-22 10:11] LABS: ANION GAP 18 (6-22 (CALC)); BUN 16 mg/dL (7-17); BUN/CREATININE RATIO 44 (12-20 (CALC)); CARBON DIOXIDE 19 mmol/l (22-30); CHLORIDE 101 mmol/l (95-108); CREATININE 0.4 mg/dL (0.5-1.0); GFR > 60 ML/MIN (>=60 (CALC)); GFR FOR AFR.AMER. > 60 ML/MIN (>=60 (CALC)); POTASSIUM 4.5 mmol/l (3.5-5.1); SODIUM 133 mmol/l (137-146)
[2019-08-22 11:23] VITALS: BP 129/67
--- NOTE | 2019-08-22 12:01 | NUR ---
PT IS EATING HER LUNCH WITH NO S/S OF DISTRESS NOTED. PT DENIES ANY NEEDS AT THIS TIME. CALL LIGHT IN REACH.
[2019-08-22] MEDS ORDERED: Levaquin PO (12:49)
--- NOTE | 2019-08-22 15:07 | NUR ---
Discharge instructions given. Patient verbalizes understanding of same. Discharged in stable condition via Wheelchair to Home with family. All belongings sent with pt.
--- NOTE | 2019-08-23 10:22 | NUR ---
Notified Kaleigh Freitas APRN, of preliminary blood culture results growing gram positive cocci in 1/2 sets. Will follow-up with final results.
== END 2019-08-22 15:08 | disposition home or self-care (01) ==
LOC: ED 11:24 → ED-I 13:50 → ED 14:02 → MS2 14:03
PROVIDERS: Family Medicine; Nurse Practitioner Family; ADMIT Internal Medicine; ATTEND Internal Medicine
DX: K52.9 Noninfective gastroenteritis and colitis, unspecified (principal); J44.9 Chronic obstructive pulmonary disease, unspecified; E87.1 Hypo-osmolality and hyponatremia; I10 Essential (primary) hypertension; E11.69 Type 2 diabetes mellitus with other specified complication; E78.5 Hyperlipidemia, unspecified; E66.01 Morbid (severe) obesity due to excess calories; E03.9 Hypothyroidism, unspecified; I25.10 Atherosclerotic heart disease of native coronary artery without angina pectoris; K76.0 Fatty (change of) liver, not elsewhere classified; I25.2 Old myocardial infarction; Z95.5 Presence of coronary angioplasty implant and graft; Z79.84 Long term (current) use of oral hypoglycemic drugs; Z87.891 Personal history of nicotine dependence; Z99.81 Dependence on supplemental oxygen; Z91.19 Patient's noncompliance with other medical treatment and regimen; Z68.42 Body mass index [BMI] 45.0-49.9, adult
CPT/HCPCS: G0378; J1650; Q9967

== ENCOUNTER 2019-08-24 | Inpatient (IN) | payer OTHER ==
--- NOTE | 2019-08-23 15:05 | NUR ---
PT TO ROOM WITH A STEADY GAIT.
--- NOTE | 2019-08-23 15:36 | NUR ---
MD AT BEDSIDE AND EXAMINED PT FOR C/O ABSCESS. NURSE AT BEDSIDE.
[2019-08-23 15:48] LABS: HEMATOCRIT 40.4 % (37.0-47.0); HEMOGLOBIN 13.4 g/dl (12.0-16.0); IMMATURE GRANULOCYTES 0.8 % (0.0-5.0); MEAN CELL VOLUME 89.6 fL CALC (80.0-100.0); MEAN CORPUSCULAR HGB 29.7 pG CALC (26.0-32.0); MEAN CORPUSCULAR HGB CONC 33.2 g/L CALC (32.0-36.0); NEUT# 11.38 thou/uL (2.00-7.15); RED BLOOD COUNT 4.51 mill/uL (4.20-5.60); RED CELL DISTRI WIDTH 14.7 % (11.5-15.5)
[2019-08-23 15:57] LABS: ALBUMIN 3.9 g/dL (3.2-5.0); ALKALINE PHOSPHATASE 84 u/l (38-126); ANION GAP 18 (6-22 (CALC)); BILIRUBIN, TOTAL 0.6 mg/dL (0.0-1.4); BUN 19 mg/dL (7-17); BUN/CREATININE RATIO 50 (12-20 (CALC)); CARBON DIOXIDE 20 mmol/l (22-30); CHLORIDE 101 mmol/l (95-108); CREATININE 0.4 mg/dL (0.5-1.0); GFR > 60 ML/MIN (>=60 (CALC)); GFR FOR AFR.AMER. > 60 ML/MIN (>=60 (CALC)); LIPASE 35 u/l (23-300); POTASSIUM 4.6 mmol/l (3.5-5.1); SGOT/AST 17 u/l (14-36); SODIUM 135 mmol/l (137-146)
[2019-08-23 15:58] LABS: TOTAL PROTEIN 7.7 g/dL (6.3-8.2)
--- NOTE | 2019-08-23 16:15 | NUR ---
PT RETURNED FROM CT ADVISED OF WAIT TIME. NO APPARENT DISTRESS.
[2019-08-23 17:53] LABS: URINE BLOOD DIPSTICK TRACE-INTACT (NEGATIVE); URINE COLOR YELLOW; URINE GLUCOSE - DIPSTICK >=1000 mg/dL (NEGATIVE); URINE KETONE 40 mg/dL (NEGATIVE); URINE LEUK ESTERASE NEGATIVE (NEGATIVE); URINE NITRITE - DIPSTICK NEGATIVE (Negative); URINE PH 5.5 (4.5-8.0); URINE PROTEIN - DIPSTICK NEGATIVE (NEG-TRACE); URINE SPECIFIC GRAVITY 1.015; URINE UROBILINOGEN - DIPSTICK 0.2 E.U./dL (0.2)
--- NOTE | 2019-08-23 18:02 | NUR ---
REPORT CALLED TO ALFRED SANCHEZ, ON [employer].
--- NOTE | 2019-08-23 18:05 | NUR ---
TELEMETRY PLACED ON PT.
[2019-08-23 18:08] LABS: URINE BILIRUBIN - DIPSTICK NEGATIVE (NEGATIVE)
--- NOTE | 2019-08-23 18:10 | NUR ---
PT TO MEDSUR VIA STRETCHER IV SITES HEALTHY. IV FLUIDS INFUSING. PT ABLE TO STAND AND TRANSFER STRETCHER TO STRETCHER WITHOUT ASSIST.
--- NOTE | 2019-08-23 18:15 | NUR ---
PT ARRIVED FROM ER VIA STRETCHER ACCOMPANIED BY STAFF. IV SITES ARE CDI. SOME DRAINAGE NOTED ON PAD FROM PUBIS AREA. AMBULATED TO THE BATHROOM.
--- NOTE | 2019-08-23 18:30 | NUR ---
PT ASSESSMENT IS COMPLETED: IV SITES ARE FREE FROM REDNESS OR EDEMA. ABD IS SOFT WITH ACTIVE BS. BREATH SOUNDS ARE CLEAR,BILATERALLY, HR IS REG,PULSES ARE STRONG X4. TELE MONITOR IN PLACE.
[2019-08-23 18:45] VITALS: BP 119/51
--- NOTE | 2019-08-23 19:51 | NUR ---
PT RESTING IN BED. A&O X3. NO DISTRESS NOTED AT THIS TIME. PT C/O THROBBING PAIN IN PERINEAL AREA, NO PAIN REPORTED WITH URINATION. PERINEAL AREA REDDENED AND SWOLLEN WITH 2 AREAS DRAINING. SEE CHART FOR PHOTOS. PT REPORTS PAIN IS PRESENT WHEN SHE TRIES NO MOVE OTHERWISE IT IS TOLERABLE. PT ALSO REPORTS NAUSEA, EXPLAINED TO THE PT THAT WE ARE AWAITING BUFFER COPPER ORDERS. NO OTHER NEEDS AT THIS TIME. DISCUSSED POC. ASSESSMENT COMPLETED AT THIS TIME. CALL LIGHT IN REACH CONTINUE TO MONITOR.
--- NOTE | 2019-08-23 23:45 | NUR ---
PT SLEEPING IN BED. NO DISTRESS NOTED. PT STATES HER NAUSEA HAS SUBSIDED. CALL LIGHT IN REACH, CONTINUE TO MONITOR.
[2019-08-23 23:52] VITALS: BP 147/62
[2019-08-24] VITALS (9 sets, daily range): BP systolic 92–144; BP diastolic 42–71
[~2019-08-24] MED LIST changes: +Levaquin PO
--- NOTE | 2019-08-24 02:02 | NUR ---
PT SLEEPING IN BED. NO DISTRESS NOTED. CONTINUE TO MONITOR.
--- NOTE | 2019-08-24 04:00 | NUR ---
FEVER OF 101.5 , TYLENOL GIVEN. PT DENIES ANY CHILLS OR COLD SWEATS. WILL REASSESS TEMP.
[2019-08-24 05:24] LABS: HEMATOCRIT 35.7 % (37.0-47.0); HEMOGLOBIN 11.8 g/dl (12.0-16.0); IMMATURE GRANULOCYTES 0.9 % (0.0-5.0); MEAN CELL VOLUME 89.9 fL CALC (80.0-100.0); MEAN CORPUSCULAR HGB 29.7 pG CALC (26.0-32.0); MEAN CORPUSCULAR HGB CONC 33.1 g/L CALC (32.0-36.0); NEUT# 10.59 thou/uL (2.00-7.15); RED BLOOD COUNT 3.97 mill/uL (4.20-5.60); RED CELL DISTRI WIDTH 14.9 % (11.5-15.5)
--- NOTE | 2019-08-24 05:24 | NUR ---
PT RESTING IN BED. NO DISTRESS. CEFEPIME INITIATED. CONTINUE TO MONITOR.
[2019-08-24 05:45] LABS: BUN 13 mg/dL (7-17); BUN/CREATININE RATIO 36 (12-20 (CALC)); CHLORIDE 100 mmol/l (95-108); CREATININE 0.4 mg/dL (0.5-1.0); GFR > 60 ML/MIN (>=60 (CALC)); GFR FOR AFR.AMER. > 60 ML/MIN (>=60 (CALC)); POTASSIUM 4.4 mmol/l (3.5-5.1); SODIUM 133 mmol/l (137-146)
[2019-08-24 05:46] LABS: ANION GAP 12 (6-22 (CALC)); CARBON DIOXIDE 25 mmol/l (22-30)
--- NOTE | 2019-08-24 07:55 | NUR ---
Vancomycin consult Age: 48 yo Serum creatinine: 1 mg/dL Height: 64.0 Inches Weight (kg): 120.65 IBW (kg): 54.70 Dosing wt(kg): 120.65 Estimated Creatinine clearance (ml/min): 58.8 Vd (liters): 84.5 (factor used: 0.7 L/kg) Musa (hr-1): 0.053 Half life (hrs): 13.08 Vancomycin 1250 mg q 12 hrs starting today at 1800 with an expected Cpeak of 30 mcg/ml and an expected Ctrough of 17 mcg/ml. next trough on 08/26/19 at 0530.
--- NOTE | 2019-08-24 08:00 | NUR ---
ASSESSMENT IS COMPLETED: IV SITE ISF REE FROM REDNESS OR EDEMA. HR IS REG,PULSES ARE STRONG X4, ABD IS SOFT WITH ACTIVE BS. BREATH SOUNDS ARE CLEAR,BILATERALLY. PUBIC AREA REMAINS DRAINING AND RED
--- NOTE | 2019-08-24 12:00 | NUR ---
PT IS RELAXING IN BED WITH NO DISTRESS NOTED. IV SITE IS FREE FROM REDNESS OR EDEMA.
--- NOTE | 2019-08-24 12:33 | NUR ---
PT SIGNED CONSENT FOR SURGERY, HAS BEEN NPO SINCE 8AM.
--- NOTE | 2019-08-24 14:21 | NUR ---
PT BEING TRANSPORTED TO OR VIA STRETCHER ACCOMPANIED BY STAFF
--- NOTE | 2019-08-24 16:27 | NUR ---
PT RETURNED FROM OR VIA STRETCHER ACCOMPANIED BY STAFF. IV SITE IS FREE FROM REDNESS OR EDEMA. DRESSING INTACT AND DRAINING BLOODY DRAINAGE. SCD'S IN PLACE. O2 @ 2 LITERS WITH NC, CONTINUE TO OBSERVE AND MONITOR. PT ABLE TO AMBULATE TO THE BED FROM THE STRETCHER.,
--- NOTE | 2019-08-24 16:30 | NUR ---
PT IN BED RESTING AFTER RETURNING FROM OR.
--- NOTE | 2019-08-24 23:00 | NUR ---
PT MEDICATED ORDERS PROVIDE AND ASSISTED PT TO BSC. MODERATE AMOUNT OF BLOODY SEROSANGUINEOUS DRAINAGE TO BEDDING PAD OBSERVED AT THIS TIME. PT ASSISTED BACK TO BED W/CLEAN PADS AND DRESSING TO WOUND IN AILYN-AREA REINFORCED AT THIS TIME. PT TOLERATED WELL, BUT C/O HEADACHE AND ASKING FOR PAIN MEDICATION FOR HEADACHE 7/10 ON PAIN SCALE. PT LOCX4. NO OTHER S/O DISTRESS NOTED.
[2019-08-25] VITALS (11 sets, daily range): BP systolic 111–143; BP diastolic 50–74
--- NOTE | 2019-08-25 00:09 | NUR ---
APPEARS TO BE SLEEPING. NO S/O DISTRESS NOTED. CALL LIGHT W/IN REACH
--- NOTE | 2019-08-25 05:38 | NUR ---
PT MEDICATED ORDERS PROVIDE. IV ANTIBOITIC THERAPY RUNNING AT THIS TIME. PT DENIES ANY OTHER NEEDS. RETURNING TO SLEEP. CALL LIGHT AT SIDE.
[2019-08-25 05:52] LABS: HEMOGLOBIN 11.3 g/dl (12.0-16.0); IMMATURE GRANULOCYTES 5.8 % (0.0-5.0); MEAN CELL VOLUME 90.4 fL CALC (80.0-100.0); MEAN CORPUSCULAR HGB 29.2 pG CALC (26.0-32.0); MEAN CORPUSCULAR HGB CONC 32.3 g/L CALC (32.0-36.0); NEUT# 7.32 thou/uL (2.00-7.15); RED BLOOD COUNT 3.87 mill/uL (4.20-5.60); RED CELL DISTRI WIDTH 15.2 % (11.5-15.5)
[2019-08-25 06:17] LABS: ANION GAP 12 (6-22 (CALC)); BUN 12 mg/dL (7-17); BUN/CREATININE RATIO 39 (12-20 (CALC)); CARBON DIOXIDE 24 mmol/l (22-30); CHLORIDE 103 mmol/l (95-108); CREATININE 0.3 mg/dL (0.5-1.0); GFR > 60 ML/MIN (>=60 (CALC)); GFR FOR AFR.AMER. > 60 ML/MIN (>=60 (CALC)); POTASSIUM 3.9 mmol/l (3.5-5.1); SODIUM 135 mmol/l (137-146)
--- NOTE | 2019-08-25 07:50 | NUR ---
ASSESSMENT DONE. PT IS A&O X3. PT STATED PAIN IN AILYN AREA BUT DENIES PAIN MEDICATION AT THIS TIME. DRESSING IN PLACE IN AILYN AREA WITH OLD BLOODY DRAINAGE NOTED. TELE IN PLACE. RESPS EVEN AND UNLABORED. PT DENIES ANY NEEDS AT THIS TIME. PT NPO. CALL LIGHT IN REACH,
--- NOTE | 2019-08-25 09:04 | NUR ---
PT WENT TO OR VIA BED BY AGUILAR.
--- NOTE | 2019-08-25 15:20 | NUR ---
PT CAME FROM OR VIA BED BY JOSÉ ANTONIO. WOUND VAC IN PLACE IN AILYN AREA NO DRAINAGE NOTED. PT STATED PAIN 5/10 BUT DENIES PAIN MEDICATION AT THIS TIME. PO FLUIDS PROVIDED. SCD IN PLACE. IVF INFUSING WELL. CALL LIGHT IN REACH.
--- NOTE | 2019-08-25 20:35 | NUR ---
ASSISTED PT TO BSC AND BACK TO BED. 200CC OF DARK YELLOW URINE OUTPUT AT THIS TIME. PT AMULATED BACK TO BED, TOLERATED WELL. CALL LIGHT W/IN REACH FAMILY MEMBER AT BEDSIDE.
--- NOTE | 2019-08-25 22:31 | NUR ---
PT MEDICATED FOR BS OF 248. PT DENIES ANY OTHER NEEDS. WOUND VAC SUCTIONING @125 W/GOOD SEAL. SMALL AMOUNT OF RED OUTPUT.
[2019-08-26] VITALS (7 sets, daily range): BP systolic 109–141; BP diastolic 45–78
--- NOTE | 2019-08-26 05:51 | NUR ---
PT MEDICATED W/IV ANTIBIOTIC THERAPY AND FOR PAIN REPORTED 6/10 ON PAIN SCALE. DENIES ANY OTHER NEEDS.
--- NOTE | 2019-08-26 07:31 | NUR ---
Vancomycin consult Weight: 120.7 Kilograms Current dose being given: 1250 mg Current dosing interval: 12 hrs Current infusion time (hrs): 2 Trough level obtained: 5 mcg/ml Timing of trough - # of hrs before next dose: 0.5 Hrs New rate constant (kike): 0.120 hr-1 Half-life: 5.78 Hours Vd from levels: 84.49 Liters (0.7 L/kg) CLvanco= 10.139 L/hr Vancomycin 1250 mg q 8 hrs. Next dose at 1400 Infuse over 2 hrs Expected Cpeak: 21 mcg/mL Expected Ctrough: 10 mcg/mL Trough 08/27/19 at 1330
--- NOTE | 2019-08-26 08:00 | NUR ---
PT IN HIGH CABALLERO POSITION; ASSESSMENT COMPLETED; PT A/O X4; NO COMPLAINTS OR CONCERNS VOICED; WOUND VAC IN PLACE TO SUPRAPUBIC AREA 125 mmHg CONTINOUS SUCTION WITH SMALL AMOUNT OF BLOOD DRAINAGE NOTED TO CANISTER; TELE MONITOR IN PLACE; CALL SCHAFER WITHIN REACH; WILL CONTINUE TO MONITOR.
--- NOTE | 2019-08-26 11:15 | NUR ---
PT. WATCHING TV; NO COMPLAINTS OR CONCERNS VOICED; CALL SCHAFER WITHIN REACH; WILL CONTINUE TO MONITOR
--- NOTE | 2019-08-26 11:41 | NUR ---
DR. OLIVAS IN TO SEE PT; PLAN OF CARE DISCUSSED
--- NOTE | 2019-08-26 12:45 | NUR ---
WOUND VAC ALARMING HIGH LEAK; AREA REINFORCE WITH TEGADERM; CONTINOUS SUCTION RESTARTED AT 125 MMHg; PT WITH 5/10 PAIN, MEDICATED ORDERED; CALL SCHAFER WITHIN REACH; WILL CONTINUE TO MONITOR
--- NOTE | 2019-08-26 14:15 | NUR ---
PT RESTING WITH EYES CLOSED; AROUSED EASILY TO VERBAL STIMULI; NO COMPLAINTS VOICED AT THIS TIME; CALL SCHAFER WITHIN REACH; WILL CONTINUE TO MONITOR.
--- NOTE | 2019-08-26 16:38 | NUR ---
PT WATCHING TV; NO COMPLAINTS OR CONCERS VOICED; CALL SCHAFER WITHIN REACH; WILL CONTINUE TO MONITOR.
--- NOTE | 2019-08-26 19:00 | NUR ---
RECEIVED REPRT FROM NURSE ANNABELLA, PATIENT RESTING IN BED, WATCHING TV, HOOKED TO WOUNDVAC, DENIES PAIN AT THIS TIME. CALL LIGHT AT REACH.
--- NOTE | 2019-08-26 21:00 | NUR ---
PATIENT ALERT AND ORIENTED, ABLE TO MAKE NEEDS KNOWN, WITH SALINE LOCK ON LFA PATENT FLUSHES WELL, REMAINS ON TELE, BS 220 DUE COVERAGE GIVEN, HOOKED TO WOUND VAC @ 125, C/O PAIN ON PAIN ON SURGICAL SITE, PS 5/10 PRN IBUPROFEN GIVEN WILL REEVALUATE. CALL LIGHT AT REACH.
--- NOTE | 2019-08-27 | NUR ---
PATIENT APPEARS TO SLEEPING WITH EYES CLOSED, NO DISCOMFORTS NOTED AT THIS TIME, CALL LIGHT AT REACH.
[2019-08-27 03:41] VITALS: BP 111/69
--- NOTE | 2019-08-27 04:00 | NUR ---
PATIENT RESTING IN BED, ASSISTED TO BED SIDE COMODE AND ASSISTED BACK IN BED, WOUND VAC INTACT @125 SUCTION, SEALED.
[2019-08-27 07:40] VITALS: BP 112/44
--- NOTE | 2019-08-27 07:40 | NUR ---
AWAKE ON ROUNDS. RESP NON-LABORED. LUNGS CLEAR, WOUND VAC IN PLACE TO SUPRPUBIC AREA, DRAINING FOUL SMELLING MILKY RED FLUID. ABD SOFT WITH BOWEL SOUNDS PRESENT. SHIFT ASSESSMENT COMPLETED. SALINE LOCK IN LFA, SITE BENIGN. DSCUSED PLAN OF CARE. DENIES NEEDS AT THIS TIME.
--- NOTE | 2019-08-27 09:32 | NUR ---
MEDICATED FOR PAIN ORDERED.
[2019-08-27 10:46] VITALS: BP 153/66
--- NOTE | 2019-08-27 11:40 | NUR ---
TO XRAY FOR PICC LINE PLACEMENT VIA WC ACCOMPANIED BY VOLUNTEER.
[2019-08-27 11:50] LABS: HEMATOCRIT 32.9 % (37.0-47.0); HEMOGLOBIN 10.8 g/dl (12.0-16.0); MEAN CELL VOLUME 89.6 fL CALC (80.0-100.0); MEAN CORPUSCULAR HGB 29.4 pG CALC (26.0-32.0); MEAN CORPUSCULAR HGB CONC 32.8 g/L CALC (32.0-36.0); NEUT# 6.82 thou/uL (2.00-7.15); RED BLOOD COUNT 3.67 mill/uL (4.20-5.60); RED CELL DISTRI WIDTH 15.2 % (11.5-15.5)
[2019-08-27 12:05] LABS: ANION GAP 13 (6-22 (CALC)); BUN 9 mg/dL (7-17); BUN/CREATININE RATIO 35 (12-20 (CALC)); CARBON DIOXIDE 25 mmol/l (22-30); CHLORIDE 100 mmol/l (95-108); CREATININE 0.3 mg/dL (0.5-1.0); GFR > 60 ML/MIN (>=60 (CALC)); GFR FOR AFR.AMER. > 60 ML/MIN (>=60 (CALC)); POTASSIUM 3.8 mmol/l (3.5-5.1); SODIUM 134 mmol/l (137-146)
--- NOTE | 2019-08-27 12:20 | NUR ---
RETURNED TO ROOM. JAMES DOUBLE LUMEN PICC LINE IN PLACE.
--- NOTE | 2019-08-27 14:51 | NUR ---
Vancomycin consult Weight: 120 Kilograms Current dose being given: 1250 mg Current dosing interval: 8 hrs Current infusion time (hrs): 2 Trough level obtained: 8 mcg/ml Timing of trough - # of hrs before next dose: 0.5 Hrs New rate constant (kike): 0.140 hr-1 Half-life: 4.95 Hours Vd from levels: 84.00 Liters (0.7 L/kg) CLvanco= 11.760 L/hr Vancomycin 1500 mg q 8 hrs starting tonight at 2200 Infuse over 2 hrs Expected Cpeak: 23 mcg/mL Expected Ctrough: 10.0 mcg/mL. Next trough 08/29/19 at 0530.
[2019-08-27 15:14] VITALS: BP 110/64
--- NOTE | 2019-08-27 16:20 | NUR ---
ASSISTED UP TO BSC, PASSING FLATUS, NO BM. VOIDS CLEAR SHARRON URINE. WOUND VAC INTACT, REMAINS AT 125 MM SUCTION-WITH MILKY RED DRAINAGE, VERY FOUL SMELLING.
[2019-08-27 18:35] VITALS: BP 119/58
--- NOTE | 2019-08-27 19:00 | NUR ---
REPORT RECEIVED FROM CONCHITA STALLINGS. PT RESTING IN BED, FAMILY AT BEDSIDE. NO S/S OF DISTRESS AT THIS TIME. SAFETY PRECAUTIONS IN PLACE. WILL CONTINUE TO MONITOR.
--- NOTE | 2019-08-27 20:20 | NUR ---
PT RESTING IN BED ALERT AND ORIENTED. RESPIRATIONS EVEN AND UNLABORED ON RA. LUNGS SOUND CLEAR. PEDAL PULSES WEAK. WOUND VAC IN PLACE. PICC IN UPPER RIGHT ARM PATENT AND APPEARS HEALTHY. SAFETY PRECAUTIONS IN PLACE. WILL CONTINUE TO MONITOR.
[2019-08-28] VITALS (7 sets, daily range): BP systolic 103–139; BP diastolic 57–74
--- NOTE | 2019-08-28 01:00 | NUR ---
PT RESTING IN BED, RESPIRATIONS EVEN AND UNLABORED. NO S/S OF DISTRESS AT THIS TIME. SAFETY PRECAUTIONS IN PLACE.
--- NOTE | 2019-08-28 04:02 | NUR ---
PT RESTING IN BED. NO S/S OF DISTRESS AT THIS TIME. TELE IN PLACE. WOUND VAC IN PLACE. CALL SCHAFER WITHIN REACH. WILL CONTINUE TO MONITOR.
--- NOTE | 2019-08-28 07:20 | NUR ---
SLEEPING ON ROUNDS. AWAKENS TO NAME. RESP NON-LABORED. LUNGS CLEAR. ABD SOFT WITH BOWEL SOUNDS PRESENT. WOUND VAC IN PLACE TO MONS PUBIS WITH BRIDGE TO LEFT PERINEAL AREA, WITH SUX MAINTAINED AT 125 MM. WOUND VAC DRAINS PURULENT LIGHT RED TO PINK DRAINAGE WITH FOUL SMELL. DOUBLE LUMEN PICC LINE INTACT TO JAMES, DSG CDI, SITE BENIGN. DISCUSSED PLAN OF CARE, NO NEEDS IDENTIFIED AT THIS TIME. CALL SCHAFER IN REACH.
--- NOTE | 2019-08-28 08:15 | NUR ---
DR BRITT AND WOUND CARE NURSE VALENTINA HERE TO CHANGE WOUND VAC.
--- NOTE | 2019-08-28 08:33 | NUR ---
PATIENT IN EXTREME PAIN D/T WOUND VAC CHANGE, MEDICATED WITH DILAUDID 1 MG IVP ORDERED FOR SEVERE PAIN.
--- NOTE | 2019-08-28 08:50 | NUR ---
WOUND VAC CHANGE COMPLETED. PATIENT ENCOURAGE TO REST.
--- NOTE | 2019-08-28 09:30 | NUR ---
NAPPING AT THIS TIME.
--- NOTE | 2019-08-28 11:30 | NUR ---
ASSISTED UP TO BSC. VOIDS CLEAR SHARRON URINE. UP TO CHAIR FROM [facility] WITH MINIMAL ASSIST.
--- NOTE | 2019-08-28 13:30 | NUR ---
PATIENT CONTINUES UP IN RECLINER WITH LEGS ELEVATED. STATES FEELS GOOD TO BE OOB. DENIES NEED FOR PAIN MED WHEN OFFERED. PICC LINE INTACT IN JAMES. WOUND VAC CONTINUES WITH SUX MAINTAINED AT 125 MM, MILKY PINK DRAINAGE NOTED.
--- NOTE | 2019-08-28 16:15 | NUR ---
REMAINS UP IN CHAIR.
--- NOTE | 2019-08-28 17:20 | NUR ---
MEDICATED FOR PAIN ORDERED. PATIENT REMAINS UP IN CHAIR STATES WILL GO BACK TO BED AFTER DINNER.
--- NOTE | 2019-08-28 18:25 | NUR ---
RESTING IN BED.
--- NOTE | 2019-08-28 19:00 | NUR ---
REPORT RECEIVED FROM CONCHITA STALLINGS. PT RESTING IN BED, FAMILY AT BEDSIDE. SAFETY PRECAUTIONS IN PLACE. WILL CONTINUE TO MONITOR.
--- NOTE | 2019-08-28 21:24 | NUR ---
PT RESTING IN BED, ALERT AND ORIENTED. RESPIRATIONS EVEN AND UNLABORED ON RA. WHEEZES NOTED THROUGH OUT LUNGS. PEDAL PULSES WEAK. PT REPORTS PAIN OF A 7/10, PT MEDICATED PER EMAR ORDERS. TELE IN PLACE. WOUND VAC IN PLACE. CALL SCHAFER WITHIN REACH. WILL CONTINUE TO MONITOR.
--- NOTE | 2019-08-29 00:15 | NUR ---
PT RESTING IN BED. RESPIRATIONS EVEN AND UNLABORED ON RA. SAFETY PRECAUTIONS IN PLACE. WILL CONTINUE TO MONITOR.
[2019-08-29 03:38] VITALS: BP 130/75
--- NOTE | 2019-08-29 08:00 | NUR ---
SITTING UP AT SIDE OF BED ON ROUNDS. RESP NON-LABORED. LUNGS CLEAR. VSS. AFEBRILE. JAMES PICC LINE INTACT, DSG CDI. WOUND VAC IN PLACE WITH GOOD SEAL, SUX MAINTAINED AT 125 MM. WOUND VAC IS DRAINING PINK TO PALE RED MILKY FLUID. DISCUSSED PLAN OF CARE. NO NEEDS IDENTIFIED AT THIS TIME. CALL SCHAFER IN REACH.
--- NOTE | 2019-08-29 10:00 | NUR ---
SITTING UP IN RECLINER AT THIS TIME.
[2019-08-29 10:54] VITALS: BP 138/83
--- NOTE | 2019-08-29 11:45 | NUR ---
PATIENT REMAINS SITTING UP IN RECLINER. NO CHANGES TO REPORT.
[2019-08-29 15:41] VITALS: BP 130/76
--- NOTE | 2019-08-29 16:06 | NUR ---
Pt is being followed by pharmacy for vancomycin dosing. Pt is being treated for cellulitis, goal trough 10-15 mcg/ml. Pt trough on 08/29/19 was 13 mcg/ml. Continue current vancomycin regimen of 1500mg IV q8h at 0600, 1400, and 2200. Pharmacy will continue to follow.
--- NOTE | 2019-08-29 16:30 | NUR ---
SITTING UP IN CHAIR. NO COMPLAINTS VOICED.
[2019-08-29 18:50] VITALS: BP 127/75
--- NOTE | 2019-08-29 20:58 | NUR ---
PT MEDICATED ORDERS PROVIDE. PT APPEARS STABLE AT THIS TIME, BUT C/O FEELING LIKE SHE NEEDS A BREATHING TREATMENT, FEELS "A LITTLE HARD TO CATCH MY BREATH." RESPIRATORY CALLED AT THIS TIME. NO OTHER S/S OF DISTRESS. VISITOR AT BEDSIDE.
--- NOTE | 2019-08-29 22:39 | NUR ---
PT MEDICATED W/IV ANTIBIOTICTHERAPY.WOUNDVAC SET TO 125MM SUCTION APPEARS TO BE MAINTAINING GOOD SEAL. PT PT ALSO MEDICATED FOR PAIN REPORTED 6/10 ON PAIN SCALE AT THIS TIME. VISITOR AT BEDSIDE ASLEEP. TV AND LIGHTS ARE ON. PT DENIES ANY OTHER NEEDS AT THIS TIME. CALL LIGHT W/INR EACH.
[2019-08-29 23:36] VITALS: BP 152/84
[2019-08-30] VITALS (9 sets, daily range): BP systolic 104–175; BP diastolic 57–87
--- NOTE | 2019-08-30 00:47 | NUR ---
PT SLEEPING AT THIS TIME. VISITOR AT BEDSIDE ASLEEP ON COUCH. NO S/O DISTRES NOTED.
--- NOTE | 2019-08-30 04:00 | NUR ---
LABS DRAWN FROM PICC LINE PER ORDERS AND LINE FLUSHED. IV ANTIBIOTICS ARE BEING ADMINISTERED AT THIS TIME.
--- NOTE | 2019-08-30 04:07 | NUR ---
pt medicated for headache. pt up to bsc and back to bed. denies any other needs at this time.
[2019-08-30 05:00] LABS: ANION GAP 11 (6-22 (CALC)); BUN 8 mg/dL (7-17); BUN/CREATININE RATIO 28 (12-20 (CALC)); CARBON DIOXIDE 29 mmol/l (22-30); CHLORIDE 102 mmol/l (95-108); CREATININE 0.3 mg/dL (0.5-1.0); GFR > 60 ML/MIN (>=60 (CALC)); GFR FOR AFR.AMER. > 60 ML/MIN (>=60 (CALC)); MAGNESIUM 1.8 mg/dL (1.6-2.3); SODIUM 137 mmol/l (137-146)
[2019-08-30 05:04] LABS: HEMATOCRIT 33.6 % (37.0-47.0); HEMOGLOBIN 10.6 g/dl (12.0-16.0); MEAN CELL VOLUME 89.8 fL CALC (80.0-100.0); MEAN CORPUSCULAR HGB 28.3 pG CALC (26.0-32.0); MEAN CORPUSCULAR HGB CONC 31.5 g/L CALC (32.0-36.0); RED BLOOD COUNT 3.74 mill/uL (4.20-5.60); RED CELL DISTRI WIDTH 15.4 % (11.5-15.5)
[2019-08-30 06:53] LABS: IMMATURE GRANULOCYTES 15.9 % (0.0-5.0); MANUAL DIFFERENTIAL YES; PLATELET COUNT 403 thou/uL (130-400)
[2019-08-30 06:54] LABS: BAND 5 % (0-8); NUCLEATED RED BLOOD CELL 1 /100WBC (0-1)
[2019-08-30 06:56] LABS: ANISOCYTOSIS FEW; HYPOCHROMIA FEW; POIKILOCYTOSIS FEW; POLYCHROMASIA FEW
--- NOTE | 2019-08-30 08:10 | NUR ---
ASSESSMENT IS COMPLETED: IV SITE IS FREE FROMR EDNESS OR EDEMA. HR IS REG,PULSES ARE STRONG X4, ABD IS SOFT WITH ACTIVE BS. BREATH SOUDSN ARE CLEAR,BILATERALLY, TELE MONTIOR IN PLACE. WOUND VAC IN PLACE. PT TOLERATING WELL.
--- NOTE | 2019-08-30 12:12 | NUR ---
WOUND VAC CANSITER FULL AT 450ML OF FLUID, CHANGED OUT,
--- NOTE | 2019-08-30 12:20 | NUR ---
PT IS RELAXING IN BED, NO DISTRESS NOTED. IV SITE IS FREE FROM REDNESS OR EDEMA. CONTINUE TO OBSERVE AND MONITOR.
--- NOTE | 2019-08-30 17:30 | NUR ---
PT C/O UNABLE TO BREATHE. RAPID RESPONSE WAS CALLED. AND EKG, RESPIRATORY, AND ER STAFF ARRIVED. PT BP CHECKED .AND WAS HIGH, O2 SATS WERE 89%.
--- NOTE | 2019-08-30 17:45 | NUR ---
PT TRANSPORTED TO ICU VIA BED, WITH STAFF , RESPIRATORY. PLACED WITH A NON REBREATHER SAT 97% WITH MASK. JOY PERALTA. IS IN THE ROOM.
[2019-08-30 17:55] LABS: HEMATOCRIT 36.5 % (37.0-47.0); HEMOGLOBIN 11.3 g/dl (12.0-16.0); MEAN CELL VOLUME 94.1 fL CALC (80.0-100.0); MEAN CORPUSCULAR HGB 29.1 pG CALC (26.0-32.0); RED BLOOD COUNT 3.88 mill/uL (4.20-5.60); RED CELL DISTRI WIDTH 15.4 % (11.5-15.5)
--- NOTE | 2019-08-30 18:08 | NUR ---
PT IS IN ICU REPORT GIVEN TO FELIPA ARANGO. FAMILY ARRIVED TO THE UNIT.
[2019-08-30 18:09] LABS: PROTHROMBIN TIME 10.5 SECONDS (9.0-12.5)
[2019-08-30 18:14] LABS: ALKALINE PHOSPHATASE 82 u/l (38-126); BUN 9 mg/dL (7-17); BUN/CREATININE RATIO 23 (12-20 (CALC)); CHLORIDE 104 mmol/l (95-108); CREATININE 0.4 mg/dL (0.5-1.0); GFR > 60 ML/MIN (>=60 (CALC)); GFR FOR AFR.AMER. > 60 ML/MIN (>=60 (CALC)); MAGNESIUM 1.9 mg/dL (1.6-2.3); SODIUM 137 mmol/l (137-146); TOTAL PROTEIN 6.2 g/dL (6.3-8.2)
[2019-08-30 18:15] LABS: ALBUMIN 2.9 g/dL (3.2-5.0); ANION GAP 19 (6-22 (CALC)); BILIRUBIN, TOTAL 0.3 mg/dL (0.0-1.4); CARBON DIOXIDE 19 mmol/l (22-30); POTASSIUM 5.2 mmol/l (3.5-5.1); SGOT/AST 35 u/l (14-36)
--- NOTE | 2019-08-30 18:15 | NUR ---
PT RESPIRATORY STATUS FALLING, EDUARDO HAMILTON NOTIFIED. ORDER RECIEVED FOR PT TO BE INTUBATED. DR. AGUIRRE NOTIFIED FOR INTUBATION, RT AT BEDSIDE DR. AGUIRRE ARRIVED AT BEDSIDE, CONCHITA BOLIVAR AT BEDSIDE .
--- NOTE | 2019-08-30 19:20 | NUR ---
1900.PT TRANPORTED TO CT IN BED WITH RT AT BEDSIDE. UNABLE TO USE JAMES PICC, 20G STARTED TO LAC, LINE BECAME DISLODGED IN CT. UNABLE TO COMPLETE SCAN AT THIS TIME. PT THEN TRANSPORTED BACK TO ICU BED 7.
--- NOTE | 2019-08-30 19:55 | NUR ---
NOTIFIED DR. VARGAS TO UPDATE ON PT STATUS, ORDERS RECIEVED TO TRANSFER PT TO [facility]. DX. SEVERE SEPSIS
--- NOTE | 2019-08-30 19:55 | NUR ---
lab here. blood drawn.
--- NOTE | 2019-08-30 20:00 | NUR ---
NOTIFIED FARA LIMA RN FOR BED ASSIGNMENT.
--- NOTE | 2019-08-30 20:05 | NUR ---
NOTIFIED AEROMED AND BAYFLIGHT , FLIGHT DECLINED DUE TO WEATHER CONDITIONS.
--- NOTE | 2019-08-30 20:10 | NUR ---
#16 wyman inserted, x4 assists as pt is very obese, with clear yellow urine returned.
--- NOTE | 2019-08-30 20:12 | NUR ---
call receivd from [facility] aisha Gutierrez RN; facesheet to be faxed; awaiting MD to retaining room cutter report/ acceptance; facesheet
--- NOTE | 2019-08-30 20:20 | NUR ---
CONSENT FOR TRANSFER SIGNED BY SPOUSE.
--- NOTE | 2019-08-30 20:27 | NUR ---
CONCHITA LIMA FROM [facility] CALLED WITH BED ASSIGNMENT FOR BED 256.
--- NOTE | 2019-08-30 20:28 | NUR ---
NOTIFIED [facility] AGAIN TO CHECK FLIGHT STATUS AGAIN. . THEY ARE UNABLE TO FLY AT THIS TIME.
--- NOTE | 2019-08-30 20:30 | NUR ---
bp per monitor 60 systolic. levophed gtt began.
--- NOTE | 2019-08-30 20:35 | NUR ---
[facility] CALLED FOR TRANSPORT, SPOKE WITH [facility] TO TRANSPORT WITH [facility] AND [facility], ETA 15-20 MIN.
--- NOTE | 2019-08-30 20:55 | NUR ---
[facility] ARRIVED FOR TRANPORT.
--- NOTE | 2019-08-30 21:40 | NUR ---
[facility] left.
== END 2019-08-30 21:40 | DRG 500 ==
PROVIDERS: Family Medicine; Nurse Practitioner Family; ADMIT Internal Medicine
PROC: 0Y960ZZ Drainage of Left Inguinal Region, Open Approach (ICD-10-PCS; principal; 2019-08-24)
PROC: 0JDB0ZZ Extraction of Perineum Subcutaneous Tissue and Fascia, Open Approach (ICD-10-PCS; 2019-08-25)
PROC: 02HV33Z Insertion of Infusion Device into Superior Vena Cava, Percutaneous Approach (ICD-10-PCS; 2019-08-27)
PROC: B518ZZA Fluoroscopy of Superior Vena Cava, Guidance (ICD-10-PCS; 2019-08-27)
PROC: 5A09357 Assistance with Respiratory Ventilation, Less than 24 Consecutive Hours, Continuous Positive Airway Pressure (ICD-10-PCS; 2019-08-30)
PROC: 0BH17EZ Insertion of Endotracheal Airway into Trachea, Via Natural or Artificial Opening (ICD-10-PCS; 2019-08-30)
PROC: 5A1935Z Respiratory Ventilation, Less than 24 Consecutive Hours (ICD-10-PCS; 2019-08-30)
DX: M72.6 Necrotizing fasciitis (principal); A41.9 Sepsis, unspecified organism; R65.20 Severe sepsis without septic shock; J96.01 Acute respiratory failure with hypoxia; Z68.42 Body mass index [BMI] 45.0-49.9, adult; L03.314 Cellulitis of groin; L02.215 Cutaneous abscess of perineum; I10 Essential (primary) hypertension; E13.69 Other specified diabetes mellitus with other specified complication; E78.5 Hyperlipidemia, unspecified; J44.9 Chronic obstructive pulmonary disease, unspecified; E03.9 Hypothyroidism, unspecified; F32.9 Major depressive disorder, single episode, unspecified; E66.01 Morbid (severe) obesity due to excess calories; F17.200 Nicotine dependence, unspecified, uncomplicated; I25.2 Old myocardial infarction; B96.89 Other specified bacterial agents as the cause of diseases classified elsewhere; Z87.01 Personal history of pneumonia (recurrent); Z95.5 Presence of coronary angioplasty implant and graft; Z79.84 Long term (current) use of oral hypoglycemic drugs; Z79.02 Long term (current) use of antithrombotics/antiplatelets
CPT/HCPCS: J0131; J0692; J1650; J3370; Q9967

== ENCOUNTER 2020-02-05 17:52 | Observation (INO) | payer OTHER ==
[~2020-02-05] VITALS: Ht 162.6 cm; Wt 125.4 kg
[2020-02-05 18:59] LABS: IMMATURE GRANULOCYTES 0.6 % (0.0-5.0); MEAN CORPUSCULAR HGB 28.2 pG CALC (26.0-32.0); MEAN CORPUSCULAR HGB CONC 33.2 g/dL CAL (32.0-36.0); NEUT# 5.66 thou/uL (2.00-7.15); RED BLOOD COUNT 5.28 mill/uL (4.20-5.60); RED CELL DISTRI WIDTH 15.2 % (11.5-15.5)
[2020-02-05 19:03] LABS: HEMATOCRIT 44.9 % (37.0-47.0); HEMOGLOBIN 14.9 g/dl (12.0-16.0)
[2020-02-05 19:04] LABS: URINE BILIRUBIN - DIPSTICK NEGATIVE (NEGATIVE); URINE BLOOD DIPSTICK NEGATIVE (NEGATIVE); URINE COLOR YELLOW; URINE GLUCOSE - DIPSTICK >=1000 mg/dL (NEGATIVE); URINE KETONE NEGATIVE (NEGATIVE); URINE LEUK ESTERASE NEGATIVE (NEGATIVE); URINE NITRITE - DIPSTICK NEGATIVE (Negative); URINE PROTEIN - DIPSTICK NEGATIVE (NEG-TRACE); URINE UROBILINOGEN - DIPSTICK 0.2 E.U./dL (0.2)
[2020-02-05 19:21] LABS: ALKALINE PHOSPHATASE 89 u/l (38-126); BILIRUBIN, TOTAL 0.3 mg/dL (0.0-1.4); BUN 10 mg/dL (7-17); BUN/CREATININE RATIO 19 (12-20 (CALC)); CHLORIDE 99 mmol/l (95-108); CREATININE 0.5 mg/dL (0.5-1.0); GFR > 60 ML/MIN (>=60 (CALC)); GFR FOR AFR.AMER. > 60 ML/MIN (>=60 (CALC)); LIPASE 86 u/l (23-300); POTASSIUM 4.2 mmol/l (3.5-5.1); SGOT/AST 22 u/l (14-36); SODIUM 134 mmol/l (137-146)
[2020-02-05 19:27] LABS: ALBUMIN 4.3 g/dL (3.2-5.0); ANION GAP 14 (6-22 (CALC)); CARBON DIOXIDE 25 mmol/l (22-30); TOTAL PROTEIN 7.6 g/dL (6.3-8.2)
[2020-02-05 22:50] VITALS: BP 168/83
[2020-02-05 23:30] VITALS: BP 162/84
[2020-02-06 00:05] VITALS: BP 152/80
[2020-02-06 04:10] VITALS: BP 154/77
[2020-02-06 07:43] VITALS: BP 171/79
[2020-02-06 09:06] VITALS: BP 171/79
== END 2020-02-06 10:30 | disposition home or self-care (01) ==
LOC: ED 17:52 → ED-I 20:55 → ED 21:08 → ED-I 21:09 → MS2 22:14
PROVIDERS: Family Medicine; ADMIT Internal Medicine; ATTEND Internal Medicine
DX: R07.9 Chest pain, unspecified (principal); E11.65 Type 2 diabetes mellitus with hyperglycemia; I25.10 Atherosclerotic heart disease of native coronary artery without angina pectoris; I10 Essential (primary) hypertension; E03.9 Hypothyroidism, unspecified; E78.5 Hyperlipidemia, unspecified; E66.01 Morbid (severe) obesity due to excess calories; I25.2 Old myocardial infarction; T38.3X6A Underdosing of insulin and oral hypoglycemic [antidiabetic] drugs, initial encounter; Z91.138 Patient's unintentional underdosing of medication regimen for other reason; Z68.41 Body mass index [BMI] 40.0-44.9, adult; Z95.5 Presence of coronary angioplasty implant and graft; Z79.84 Long term (current) use of oral hypoglycemic drugs; Z87.891 Personal history of nicotine dependence; Z11.59 Encounter for screening for other viral diseases; R47.81 Slurred speech; R20.2 Paresthesia of skin
CPT/HCPCS: G0378; J1650; Q9967

== ENCOUNTER 2020-02-25 15:01 | Emergency (ER) | payer OTHER ==
[~2020-02-25] VITALS: Ht 162.6 cm; Wt 124.0 kg
[2020-02-25 20:01] LABS: HEMATOCRIT 42.8 % (37.0-47.0); HEMOGLOBIN 14.2 g/dl (12.0-16.0); IMMATURE GRANULOCYTES 1.1 % (0.0-5.0); MEAN CELL VOLUME 85.6 fL CALC (80.0-100.0); MEAN CORPUSCULAR HGB 28.4 pG CALC (26.0-32.0); MEAN CORPUSCULAR HGB CONC 33.2 g/dL CAL (32.0-36.0); NEUT# 5.53 thou/uL (2.00-7.15); RED CELL DISTRI WIDTH 15.4 % (11.5-15.5); URINE BILIRUBIN - DIPSTICK NEGATIVE (NEGATIVE); URINE BLOOD DIPSTICK NEGATIVE (NEGATIVE); URINE COLOR YELLOW; URINE GLUCOSE - DIPSTICK >=1000 mg/dL (NEGATIVE); URINE KETONE NEGATIVE (NEGATIVE); URINE LEUK ESTERASE NEGATIVE (NEGATIVE); URINE NITRITE - DIPSTICK NEGATIVE (Negative); URINE PROTEIN - DIPSTICK NEGATIVE (NEG-TRACE); URINE SPECIFIC GRAVITY 1.015; URINE UROBILINOGEN - DIPSTICK 0.2 E.U./dL (0.2)
[2020-02-25 20:03] LABS: HCG SERUM/URINE (NEG/POS) NEGATIVE (NEGATIVE)
[2020-02-25 20:20] LABS: ALBUMIN 4.4 g/dL (3.2-5.0); ALKALINE PHOSPHATASE 86 u/l (38-126); ANION GAP 14 (6-22 (CALC)); BUN 14 mg/dL (7-17); BUN/CREATININE RATIO 28 (12-20 (CALC)); CARBON DIOXIDE 21 mmol/l (22-30); CHLORIDE 103 mmol/l (95-108); CREATININE 0.5 mg/dL (0.5-1.0); GFR > 60 ML/MIN (>=60 (CALC)); GFR FOR AFR.AMER. > 60 ML/MIN (>=60 (CALC)); POTASSIUM 4.4 mmol/l (3.5-5.1); SGOT/AST 20 u/l (14-36); SODIUM 134 mmol/l (137-146); TOTAL PROTEIN 7.6 g/dL (6.3-8.2)
[2020-02-25 20:21] LABS: D-DIMER 0.33 mg/L (0.19-0.60); INTERNATIONAL NORMALIZED RATIO 0.9 RATIO (0.7-1.3); PROTHROMBIN TIME 9.6 SECONDS (9.0-12.5)
[2020-02-25 20:28] LABS: MYOGLOBIN 24 ng/mL (0 - 62)
[2020-02-25 20:47] LABS: BILIRUBIN, TOTAL 0.6 mg/dL (0.0-1.4)
[2020-02-25 21:49] VITALS: BP 158/77
== END 2020-02-25 21:47 | disposition home or self-care (01) ==
LOC: ED 15:01
PROVIDERS: Family Medicine
DX: U07.1 COVID-19 (principal); I10 Essential (primary) hypertension; J44.9 Chronic obstructive pulmonary disease, unspecified; E11.9 Type 2 diabetes mellitus without complications; I25.2 Old myocardial infarction; Z79.84 Long term (current) use of oral hypoglycemic drugs

== ENCOUNTER 2020-11-22 20:22 | Emergency (ER) | payer OTHER ==
[~2020-11-22] VITALS: Ht 162.6 cm; Wt 118.2 kg
[2020-11-22 21:14] LABS: HEMATOCRIT 46.1 % (37.0-47.0); HEMOGLOBIN 14.7 g/dl (12.0-16.0); IMMATURE GRANULOCYTES 0.3 % (0.0-5.0); MEAN CELL VOLUME 86.3 fL CALC (80.0-100.0); MEAN CORPUSCULAR HGB 27.5 pG CALC (26.0-32.0); MEAN CORPUSCULAR HGB CONC 31.9 g/dL CAL (32.0-36.0); NEUT# 5.3 thou/uL (2.00-7.15); RED BLOOD COUNT 5.34 mill/uL (4.20-5.60); RED CELL DISTRI WIDTH 15.1 % (11.5-15.5)
[2020-11-22 21:26] LABS: PROTHROMBIN TIME 10.1 SECONDS (9.0-12.5)
[2020-11-22 21:27] LABS: ALBUMIN 4.1 g/dL (3.2-5.0); ALKALINE PHOSPHATASE 90 u/l (38-126); ANION GAP 13 (6-22 (CALC)); BILIRUBIN, TOTAL 0.5 mg/dL (0.0-1.4); BUN 15 mg/dL (7-17); BUN/CREATININE RATIO 26 (12-20 (CALC)); CARBON DIOXIDE 24 mmol/l (22-30); CHLORIDE 100 mmol/l (95-108); CREATININE 0.6 mg/dL (0.5-1.0); GFR > 60 ML/MIN (>=60 (CALC)); GFR FOR AFR.AMER. > 60 ML/MIN (>=60 (CALC)); SGOT/AST 28 u/l (14-36); SODIUM 133 mmol/l (137-146); TOTAL PROTEIN 7.4 g/dL (6.3-8.2)
[2020-11-22 21:39] LABS: MYOGLOBIN 32 ng/mL (0 - 62)
[2020-11-22 23:55] VITALS: BP 164/87
== END 2020-11-22 23:25 | disposition short-term general hospital (02) ==
LOC: ED 20:22
PROVIDERS: Emergency Medicine
DX: I63.9 Cerebral infarction, unspecified (principal); R47.81 Slurred speech; R29.810 Facial weakness; R29.703 NIHSS score 3; I10 Essential (primary) hypertension; J44.9 Chronic obstructive pulmonary disease, unspecified; E11.9 Type 2 diabetes mellitus without complications; E78.00 Pure hypercholesterolemia, unspecified; I25.2 Old myocardial infarction; F17.210 Nicotine dependence, cigarettes, uncomplicated; Z95.5 Presence of coronary angioplasty implant and graft; Z20.822 Contact with and (suspected) exposure to COVID-19

== ENCOUNTER 2020-12-03 | Observation (INO) | payer OTHER ==
[2020-12-03] VITALS (9 sets, daily range): BP systolic 167–184; BP diastolic 65–83
[2020-12-03 11:37] LABS: GFR > 60 ML/MIN (>=60 (CALC)); GFR FOR AFR.AMER. > 60 ML/MIN (>=60 (CALC))
[2020-12-03 11:47] LABS: HEMOGLOBIN 15.8 g/dl (12.0-16.0); IMMATURE GRANULOCYTES 0.3 % (0.0-5.0); MEAN CELL VOLUME 87.9 fL CALC (80.0-100.0); MEAN CORPUSCULAR HGB 27.8 pG CALC (26.0-32.0); MEAN CORPUSCULAR HGB CONC 31.6 g/dL CAL (32.0-36.0); NEUT# 6.41 thou/uL (2.00-7.15); RED BLOOD COUNT 5.69 mill/uL (4.20-5.60); RED CELL DISTRI WIDTH 15.3 % (11.5-15.5)
[2020-12-03 12:02] LABS: ALBUMIN 4.5 g/dL (3.2-5.0); ALKALINE PHOSPHATASE 105 u/l (38-126); ANION GAP 14 (6-22 (CALC)); BILIRUBIN, TOTAL 0.7 mg/dL (0.0-1.4); BUN 12 mg/dL (7-17); BUN/CREATININE RATIO 24 (12-20 (CALC)); CARBON DIOXIDE 22 mmol/l (22-30); CHLORIDE 103 mmol/l (95-108); CREATININE 0.5 mg/dL (0.5-1.0); GFR > 60 ML/MIN (>=60 (CALC)); GFR FOR AFR.AMER. > 60 ML/MIN (>=60 (CALC)); POTASSIUM 4.4 mmol/l (3.5-5.1); SGOT/AST 23 u/l (14-36); SODIUM 135 mmol/l (137-146)
[2020-12-03 12:09] LABS: PROTHROMBIN TIME 10.1 SECONDS (9.0-12.5)
[2020-12-03 13:21] LABS: URINE BILIRUBIN - DIPSTICK NEGATIVE (NEGATIVE); URINE BLOOD DIPSTICK NEGATIVE (NEGATIVE); URINE COLOR YELLOW; URINE GLUCOSE - DIPSTICK >=1000 mg/dL (NEGATIVE); URINE KETONE NEGATIVE (NEGATIVE); URINE LEUK ESTERASE NEGATIVE (NEGATIVE); URINE PH 5.5 (4.5-8.0); URINE PROTEIN - DIPSTICK NEGATIVE (NEG-TRACE); URINE UROBILINOGEN - DIPSTICK 0.2 E.U./dL (0.2)
[2020-12-03 13:25] LABS: URINE NITRITE - DIPSTICK NEGATIVE (Negative)
[2020-12-03] MEDS ORDERED: CYCLOBENZAPR5 MG PO (13:25)
[2020-12-03] MEDS ORDERED: ASPIRIN81 MG PO (13:25)
[2020-12-03] MEDS ORDERED: IPRATROPIU0.5 MG/3 M IN (13:28)
[2020-12-03] MEDS ORDERED: ELIQUIS5 MG PO (13:30)
[2020-12-03] MEDS ORDERED: NOVOLOG MIX100 U/ML SC (13:33)
[2020-12-03] MEDS ORDERED: LEVOTHYROXIN125 MCG PO (13:35)
[2020-12-03] MEDS ORDERED: LIPITOR40 M1 PO (13:36)
[2020-12-03] MEDS ORDERED: LOSARTAN POTASS50 MG PO (13:36)
[2020-12-03] MEDS ORDERED: METFORMIN500 M2 PO (13:37)
[2020-12-03] MEDS ORDERED: MONTELUKAST SODIUM PO (13:42)
[2020-12-03] MEDS ORDERED: JARDIANCE10 MG PO (15:56)
[2020-12-03] MEDS ORDERED: ALL DAY10 MG PO (15:57)
[2020-12-03] MEDS ORDERED: CLOPIDOGREL75 MG PO (15:57)
[2020-12-03] MEDS ORDERED: LEVEMIR FL100 UNIT/M SC (15:59)
[2020-12-03] MEDS ORDERED: HUMALOG100 UNIT/M SC (16:02)
[2020-12-04] VITALS: BP 177/74
[2020-12-04 02:00] VITALS: BP 162/66
[2020-12-04 04:00] VITALS: BP 141/82
[2020-12-04 06:15] LABS: HEMATOCRIT 48.6 % (37.0-47.0); HEMOGLOBIN 15.2 g/dl (12.0-16.0); MEAN CORPUSCULAR HGB 27.5 pG CALC (26.0-32.0); MEAN CORPUSCULAR HGB CONC 31.3 g/dL CAL (32.0-36.0); RED BLOOD COUNT 5.52 mill/uL (4.20-5.60); RED CELL DISTRI WIDTH 15.4 % (11.5-15.5)
[2020-12-04 06:27] VITALS: BP 174/79
[2020-12-04 06:35] LABS: ANION GAP 11 (6-22 (CALC)); BUN 14 mg/dL (7-17); BUN/CREATININE RATIO 26 (12-20 (CALC)); CALCULATED LDLCHOLESTEROL 123 mg/dL (62-129 (CALC)); CARBON DIOXIDE 22 mmol/l (22-30); CHLORIDE 105 mmol/l (95-108); CHOLESTEROL HDL RATIO 6.4 (<4.4 (CALC)); CREATININE 0.5 mg/dL (0.5-1.0); GFR > 60 ML/MIN (>=60 (CALC)); GFR FOR AFR.AMER. > 60 ML/MIN (>=60 (CALC)); HDL CHOLESTEROL 29 mg/dL (>=40); MAGNESIUM 1.9 mg/dL (1.6-2.3); POTASSIUM 4.7 mmol/l (3.5-5.1); SODIUM 134 mmol/l (137-146); TOTAL CHOLESTEROL 185 mg/dl (0-199); TOTAL TRIGLYCERIDES 166 mg/dl (30-149); VLDL CHOLESTROL 33 mg/dl (2-49 (CALC))
[2020-12-04 08:00] VITALS: BP 187/75
[2020-12-04 10:00] VITALS: BP 187/87
[2020-12-04] MEDS ORDERED: AMLODIPINE BESYL5 MG PO (10:53)
== END 2020-12-04 11:50 | disposition home or self-care (01) ==
PROVIDERS: Family Medicine; Nurse Practitioner; ADMIT Internal Medicine
DX: G45.9 Transient cerebral ischemic attack, unspecified (principal); I69.992 Facial weakness following unspecified cerebrovascular disease; I10 Essential (primary) hypertension; E11.69 Type 2 diabetes mellitus with other specified complication; E78.5 Hyperlipidemia, unspecified; J44.9 Chronic obstructive pulmonary disease, unspecified; E03.9 Hypothyroidism, unspecified; I25.2 Old myocardial infarction; E66.01 Morbid (severe) obesity due to excess calories; Z68.41 Body mass index [BMI] 40.0-44.9, adult; Z95.5 Presence of coronary angioplasty implant and graft; Z79.4 Long term (current) use of insulin; Z87.891 Personal history of nicotine dependence; Z79.01 Long term (current) use of anticoagulants; Z79.82 Long term (current) use of aspirin; Z20.822 Contact with and (suspected) exposure to COVID-19
CPT/HCPCS: Q9967

== ENCOUNTER 2021-04-27 22:05 | Emergency (ER) | payer OTHER ==
[~2021-04-27] VITALS: Ht 162.6 cm; Wt 122.7 kg
[~2021-04-27 22:05] MED LIST changes: +ALL DAY10 MG PO; +AMLODIPINE BESYL5 MG PO; +ASPIRIN81 MG PO; +CLOPIDOGREL75 MG PO; +CYCLOBENZAPR5 MG PO; +ELIQUIS5 MG PO; +HUMALOG100 UNIT/M SC; +JARDIANCE10 MG PO; +LEVEMIR FL100 UNIT/M SC; +LEVOTHYROXIN125 MCG PO; +LIPITOR40 M1 PO; +LOSARTAN POTASS50 MG PO; +METFORMIN500 M2 PO; +MONTELUKAST SODIUM PO; +NOVOLOG MIX100 U/ML SC
[2021-04-27 23:39] LABS: HEMATOCRIT 43.1 % (37.0-47.0); HEMOGLOBIN 13.7 g/dl (12.0-16.0); IMMATURE GRANULOCYTES 0.4 % (0.0-5.0); MEAN CELL VOLUME 89.2 fL CALC (80.0-100.0); MEAN CORPUSCULAR HGB 28.4 pG CALC (26.0-32.0); MEAN CORPUSCULAR HGB CONC 31.8 g/dL CAL (32.0-36.0); NEUT# 9.24 thou/uL (2.00-7.15); RED BLOOD COUNT 4.83 mill/uL (4.20-5.60); RED CELL DISTRI WIDTH 15.7 % (11.5-15.5)
[2021-04-27 23:41] LABS: URINE BILIRUBIN - DIPSTICK NEGATIVE (NEGATIVE); URINE BLOOD DIPSTICK NEGATIVE (NEGATIVE); URINE COLOR YELLOW; URINE GLUCOSE - DIPSTICK >=1000 mg/dL (NEGATIVE); URINE KETONE NEGATIVE (NEGATIVE); URINE LEUK ESTERASE NEGATIVE (NEGATIVE); URINE PROTEIN - DIPSTICK NEGATIVE (NEG-TRACE); URINE UROBILINOGEN - DIPSTICK 0.2 E.U./dL (0.2)
[2021-04-27 23:44] LABS: URINE NITRITE - DIPSTICK NEGATIVE (Negative)
[2021-04-28] LABS: ALBUMIN 4.1 g/dL (3.2-5.0); ALKALINE PHOSPHATASE 103 u/l (38-126); ANION GAP 13 (6-22 (CALC)); BILIRUBIN, TOTAL 0.2 mg/dL (0.0-1.4); BUN 15 mg/dL (7-17); BUN/CREATININE RATIO 25 (12-20 (CALC)); CARBON DIOXIDE 27 mmol/l (22-30); CHLORIDE 101 mmol/l (95-108); CREATININE 0.6 mg/dL (0.5-1.0); GFR > 60 ML/MIN (>=60 (CALC)); GFR FOR AFR.AMER. > 60 ML/MIN (>=60 (CALC)); POTASSIUM 3.8 mmol/l (3.5-5.1); SGOT/AST 19 u/l (14-36); SODIUM 137 mmol/l (137-146); TOTAL PROTEIN 7.3 g/dL (6.3-8.2)
[2021-04-28 00:11] LABS: MYOGLOBIN 22 ng/mL (0 - 62)
[2021-04-28 04:12] VITALS: BP 165/80
== END 2021-04-28 04:21 | disposition home or self-care (01) ==
LOC: ED 22:05
PROVIDERS: Emergency Medicine
DX: R07.89 Other chest pain (principal); I25.10 Atherosclerotic heart disease of native coronary artery without angina pectoris; I10 Essential (primary) hypertension; E11.9 Type 2 diabetes mellitus without complications; I25.2 Old myocardial infarction; F17.210 Nicotine dependence, cigarettes, uncomplicated; Z95.5 Presence of coronary angioplasty implant and graft; Z86.73 Personal history of transient ischemic attack (TIA), and cerebral infarction without residual deficits; Z79.4 Long term (current) use of insulin; Z20.822 Contact with and (suspected) exposure to COVID-19

== ENCOUNTER 2021-09-06 11:40 | Inpatient (IN) | payer OTHER ==
[~2021-09-06] VITALS: Ht 162.6 cm; Wt 125.0 kg
[2021-09-06] VITALS (10 sets, daily range): BP systolic 135–191; BP diastolic 70–93
[~2021-09-06 11:40] MED LIST changes: -JARDIANCE10 MG PO; +JARDIANCE25 MG PO
[2021-09-06 12:01] LABS: HEMATOCRIT 38.1 % (37.0-47.0); IMMATURE GRANULOCYTES 1.3 % (0.0-5.0); MEAN CELL VOLUME 80.2 fL CALC (80.0-100.0); MEAN CORPUSCULAR HGB 23.2 pG CALC (26.0-32.0); MEAN CORPUSCULAR HGB CONC 28.9 g/dL CAL (32.0-36.0); NEUT# 17.3 thou/uL (2.00-7.15); RED BLOOD COUNT 4.75 mill/uL (4.20-5.60); RED CELL DISTRI WIDTH 17.8 % (11.5-15.5)
[2021-09-06 12:20] LABS: ALBUMIN 4.5 g/dL (3.2-5.0); ALKALINE PHOSPHATASE 123 u/l (38-126); BILIRUBIN, TOTAL 0.6 mg/dL (0.0-1.4); BUN 13 mg/dL (7-17); BUN/CREATININE RATIO 25 (12-20 (CALC)); CHLORIDE 109 mmol/l (95-108); CREATININE 0.5 mg/dL (0.5-1.0); GFR > 60 ML/MIN (>=60 (CALC)); GFR FOR AFR.AMER. > 60 ML/MIN (>=60 (CALC)); POTASSIUM 4.6 mmol/l (3.5-5.1); SGOT/AST 15 u/l (14-36); SODIUM 140 mmol/l (137-146); TOTAL PROTEIN 8.2 g/dL (6.3-8.2)
[2021-09-06 12:30] LABS: ANION GAP 17 (6-22 (CALC)); CARBON DIOXIDE 19 mmol/l (22-30)
[2021-09-06] MEDS ORDERED: WIXELA INHUB 501 AER IN (13:58)
[2021-09-06] MEDS ORDERED: CELEXA20 M1 PO (13:58)
[2021-09-06] MEDS ORDERED: PROTONIX40 M2 PO (13:59)
[2021-09-06] MEDS ORDERED: HUMALOG100 UNIT/M SC (14:00)
[2021-09-06] MEDS ORDERED: CLOPIDOGREL75 MG PO (14:00)
[2021-09-06 15:19] LABS: URINE BILIRUBIN - DIPSTICK NEGATIVE (NEGATIVE); URINE BLOOD DIPSTICK NEGATIVE (NEGATIVE); URINE COLOR YELLOW; URINE GLUCOSE - DIPSTICK >=1000 mg/dL (NEGATIVE); URINE KETONE NEGATIVE (NEGATIVE); URINE LEUK ESTERASE NEGATIVE (NEGATIVE); URINE PH 5.5 (4.5-8.0); URINE PROTEIN - DIPSTICK TRACE mg/dL (NEG-TRACE); URINE UROBILINOGEN - DIPSTICK 0.2 E.U./dL (0.2)
[2021-09-06 15:20] LABS: URINE NITRITE - DIPSTICK NEGATIVE (Negative)
[2021-09-07] VITALS (22 sets, daily range): BP systolic 138–188; BP diastolic 66–94
[2021-09-07 06:23] LABS: HEMOGLOBIN 9.2 g/dl (12.0-16.0); MEAN CELL VOLUME 79.8 fL CALC (80.0-100.0); MEAN CORPUSCULAR HGB 23.2 pG CALC (26.0-32.0); RED BLOOD COUNT 3.97 mill/uL (4.20-5.60); RED CELL DISTRI WIDTH 17.5 % (11.5-15.5)
[2021-09-07 06:29] LABS: HEMATOCRIT 31.7 % (37.0-47.0)
[2021-09-07 06:33] LABS: ALBUMIN 3.8 g/dL (3.2-5.0); ALKALINE PHOSPHATASE 97 u/l (38-126); ANION GAP 10 (6-22 (CALC)); BILIRUBIN, TOTAL 0.6 mg/dL (0.0-1.4); BUN 18 mg/dL (7-17); BUN/CREATININE RATIO 36 (12-20 (CALC)); CALCULATED LDLCHOLESTEROL 118 mg/dL (62-129 (CALC)); CARBON DIOXIDE 22 mmol/l (22-30); CHLORIDE 112 mmol/l (95-108); CHOLESTEROL HDL RATIO 5.1 (<4.4 (CALC)); CREATININE 0.5 mg/dL (0.5-1.0); GFR > 60 ML/MIN (>=60 (CALC)); GFR FOR AFR.AMER. > 60 ML/MIN (>=60 (CALC)); HDL CHOLESTEROL 33 mg/dL (>=40); POTASSIUM 4.4 mmol/l (3.5-5.1); SGOT/AST 15 u/l (14-36); SODIUM 140 mmol/l (137-146); TOTAL CHOLESTEROL 169 mg/dl (0-199); TOTAL PROTEIN 6.9 g/dL (6.3-8.2); TOTAL TRIGLYCERIDES 87 mg/dl (30-149); VLDL CHOLESTROL 17 mg/dl (2-49 (CALC))
[2021-09-08] VITALS (12 sets, daily range): BP systolic 139–157; BP diastolic 69–84
[2021-09-08 05:34] LABS: HEMATOCRIT 30.7 % (37.0-47.0); HEMOGLOBIN 8.7 g/dl (12.0-16.0); MEAN CELL VOLUME 80.2 fL CALC (80.0-100.0); MEAN CORPUSCULAR HGB 22.7 pG CALC (26.0-32.0); MEAN CORPUSCULAR HGB CONC 28.3 g/dL CAL (32.0-36.0); RED BLOOD COUNT 3.83 mill/uL (4.20-5.60); RED CELL DISTRI WIDTH 17.6 % (11.5-15.5)
[2021-09-08 06:00] LABS: ALBUMIN 3.5 g/dL (3.2-5.0); ALKALINE PHOSPHATASE 84 u/l (38-126); ANION GAP 11 (6-22 (CALC)); BILIRUBIN, TOTAL 0.5 mg/dL (0.0-1.4); BUN 24 mg/dL (7-17); BUN/CREATININE RATIO 35 (12-20 (CALC)); CARBON DIOXIDE 24 mmol/l (22-30); CHLORIDE 108 mmol/l (95-108); CREATININE 0.7 mg/dL (0.5-1.0); GFR > 60 ML/MIN (>=60 (CALC)); GFR FOR AFR.AMER. > 60 ML/MIN (>=60 (CALC)); POTASSIUM 4.3 mmol/l (3.5-5.1); SGOT/AST 14 u/l (14-36); SODIUM 138 mmol/l (137-146); TOTAL PROTEIN 6.6 g/dL (6.3-8.2)
[2021-09-08] MEDS ORDERED: LEVAQUIN750 M1 PO (11:34)
[2021-09-08] MEDS ORDERED: MEDDOSEPAK PO (11:35)
[2021-09-08] MEDS ORDERED: VENTOLIN HFA108 MCG INHW/SPAC (11:36)
== END 2021-09-08 12:45 | disposition home or self-care (01) | DRG 193 ==
LOC: ED 11:40 → ED-I 12:41 → ED 13:08 → ICU 13:09
PROVIDERS: Family Medicine; ADMIT Internal Medicine; ATTEND Internal Medicine
PROC: 5A09357 Assistance with Respiratory Ventilation, Less than 24 Consecutive Hours, Continuous Positive Airway Pressure (ICD-10-PCS; principal; 2021-09-06)
PROC: 0T9B70Z Drainage of Bladder with Drainage Device, Via Natural or Artificial Opening (ICD-10-PCS; 2021-09-06)
DX: J18.9 Pneumonia, unspecified organism (principal); J96.21 Acute and chronic respiratory failure with hypoxia; J44.0 Chronic obstructive pulmonary disease with (acute) lower respiratory infection; Z68.42 Body mass index [BMI] 45.0-49.9, adult; I10 Essential (primary) hypertension; E11.65 Type 2 diabetes mellitus with hyperglycemia; I25.10 Atherosclerotic heart disease of native coronary artery without angina pectoris; E78.5 Hyperlipidemia, unspecified; E03.9 Hypothyroidism, unspecified; E66.9 Obesity, unspecified; I25.2 Old myocardial infarction; T41.5X6A Underdosing of therapeutic gases, initial encounter; Z91.128 Patient's intentional underdosing of medication regimen for other reason; Z86.73 Personal history of transient ischemic attack (TIA), and cerebral infarction without residual deficits; Z79.01 Long term (current) use of anticoagulants; Z79.84 Long term (current) use of oral hypoglycemic drugs; Z79.4 Long term (current) use of insulin; Z95.5 Presence of coronary angioplasty implant and graft; Z99.81 Dependence on supplemental oxygen; Z20.822 Contact with and (suspected) exposure to COVID-19; Z87.891 Personal history of nicotine dependence; Z79.82 Long term (current) use of aspirin